=== PATIENT | female | born 1950 | race Caucasian/White ===

== ENCOUNTER 2019-11-10 07:41 | Outpatient (CLI) | payer MEDICARE, SELFPAY ==
--- NOTE | ~2019-11-10 | US_ITS ---
EXAMINATION: US pelvic complete w TV DATE: 11/10/2019 08:30 INDICATION: Postmenopausal bleeding Comparison:Ultrasound dated 02/14/2011 TECHNIQUE: Multiple transabdominal and endovaginal sonographic images of the pelvis performed. FINDINGS: The uterus measures 8.9 x 4.1 x 3.4 cm. There is a uterine fibroid measuring 1.7 x 1.5 x 1. 6 cm. The endometrial complex is not well visualized for measurement. The ovaries are not visualized. There is no free fluid in the pelvis. There are no abnormal masses seen on either side. IMPRESSION: 1. Uterine fibroid measuring 1.7 cm. 2: Endometrium is not adequately visualized for measurement. Reviewed, dictated and finalized at location A.
== END 2019-11-10 07:42 | disposition home or self-care (01) ==
LOC: ANHIMG 07:48
PROVIDERS: PCP Internal Medicine; Visit Provider Nurse Practitioner
DX: N95.0 Postmenopausal bleeding (principal); D25.9 Leiomyoma of uterus, unspecified
CPT/HCPCS: 76830; 76856

== ENCOUNTER 2020-03-06 08:47 | Outpatient (CLI) | payer MEDICARE, SELFPAY ==
--- NOTE | ~2020-03-06 | DEXA_ITS ---
Bone Density Report Name: Agnieszka Rockwell Age: 69 Sex: Female Ethnicity: White Date of : 1950 Indication: postmenopausal; Referring Provider: Darshana, Kaylin Study: Bone densitometry was performed. Exam Date: March 06, 2020 Accession number: [id number] Bone Density: Region BMD T-score Z-score Classification AP Spine (L3, L4) 1.203 0.9 3.1 Normal Femoral Neck (Left) 0.812 -0.3 1.4 Normal Total Hip (Left) 1.108 1.4 2.8 Normal Total Hip Bilateral Avg 1.069 1.0 2.5 Normal Femoral Neck (Right) 0.851 0.0 1.8 Normal Total Hip (Right) 1.028 0.7 2.2 Normal World Health Organization criteria for BMD impression classify patients as: Normal (T-score at or above -1.0), Osteopenia (T-score between -1.0 and -2.5), or Osteoporosis (T-score at or below -2.5). 10-year Fracture Risk: FRAX not reported because: All T-scores for Spine Total, Hip Total, Femoral Neck at or above -1.0 Previous Exams: Region Exam Age BMD T-score BMD Change BMD Change Date g/cm2 vs Baseline vs Previous AP Spine(L3, L4) 03/06/2020 69 1.203 0.9 0.155(14.8%)# -0.013(-1.0%)# 12/25/2016 66 1.215 1.0 0.167(16.0%)# 0.036(3.1%)# 01/11/2014 63 1.179 0.7 0.131(12.5%)# 0.131(12.5%)# 10/29/2005 55 1.048 -0.5 Total Hip(Left) 03/06/2020 69 1.108 1.4 0.013(1.2%)# -0.051(-4.4%)# 12/25/2016 66 1.159 1.8 0.064(5.9%)# 0.048(4.3%)# 01/11/2014 63 1.111 1.4 0.016(1.5%)# 0.016(1.5%)# 10/29/2005 55 1.094 1.2 Total Hip(Right) 03/06/2020 69 1.028 0.7 -0.004(-0.4%)# -0.082(-7.4%)# 12/25/2016 66 1.110 1.4 0.078(7.5%)# 0.031(2.9%)# 01/11/2014 63 1.079 1.1 0.046(4.5%)# 0.046(4.5%)# 10/29/2005 55 1.032 0.7 *Denotes significance at 95% confidence level, LSC for AP Spine = 0.022 g/cm2, LSC for Total Hip = 0.027 g/cm2 Clinical Information Provided by Patient: Has used the following medications: HRT (i.e. estrogen/hormone therapy), Vitamin D Patient maximum height was 64 No regular weight bearing exercise Onset of menses at age 11 Number of children 1 Impression: The patient has normal bone mass. No significant bone loss was observed. Discussion: BONE DENSITY IS ABOVE THE MINIMUM DESIRABLE LEVEL AT ALL SKELETAL SITES TESTED. This patient?s bone mineral density is above the minimum desirable level (T-score -1.0 or better) at all sites measured. The patient should follow a healthful lifesty
--- NOTE | ~2020-03-06 | MM_ITS ---
EXAMINATION: MM screening asim BI w mitchell HISTORY: Screening mammogram TECHNIQUE: Craniocaudal and mediolateral oblique 3-D tomosynthesis images were obtained and synthetic 2-D images were generated. CAD analysis was submitted and interpreted. COMPARISON: No prior mammogram is available for comparison at this institution. BREAST PARENCHYMAL COMPOSITION: There are scattered areas of fibroglandular density. FINDINGS: Occasional benign calcifications. There is no evidence of suspicious mass, calcification, o r architectural distortion to suggest malignancy in either breast. There has been no suspicious inter lana change. IMPRESSION: 1. No mammographic evidence of malignancy. 2. Recommend routine screening mammography in one year. BI-RADS Category 2: Benign finding(s). Reviewed, dictated and finalized at location A. [facility] [employer]
== END 2020-03-06 08:48 | disposition home or self-care (01) ==
PROVIDERS: PCP Internal Medicine; Visit Provider Nurse Practitioner
DX: Z12.31 Encounter for screening mammogram for malignant neoplasm of breast (principal); Z78.0 Asymptomatic menopausal state
CPT/HCPCS: 77063; 77067; 77080

== ENCOUNTER 2020-04-13 15:15 | Outpatient (CLI) | payer MEDICARE, SELFPAY ==
--- NOTE | ~2020-04-13 | US_ITS ---
EXAMINATION: US pelvic complete w TV DATE: 04/13/2020 16:43 INDICATION: Postmenopausal bleeding. TECHNIQUE: Multiple transabdominal and transvaginal sonographic images of the pelvis were obtained. COMPARISON: Ultrasound pelvis 11/10/2019 FINDINGS: TRANSABDOMINAL ULTRASOUND: The uterus measures 5.0 x 2.9 x 2.1 cm. There is no free fluid in the pelvis. TRANSVAGINAL ULTRASOUND: The endometrial complex measures 7 mm in thickness. The ovaries are not visualized. IMPRESSION: 1. Thickened endometrial complex. The differential diagnosis includes endometrial hyperplasia, polyp, and carcinoma. Biopsy is recommended. Reviewed, dictated and finalized at location A. SPECIALIST IMPRESSION: 1. Thickened endometrial complex. The differential diagnosis includes endometri al hyperplasia, polyp, and carcinoma. Biopsy is recommended.
== END 2020-04-13 15:16 | disposition home or self-care (01) ==
PROVIDERS: PCP Internal Medicine; Visit Provider Nurse Practitioner
DX: N95.0 Postmenopausal bleeding (principal)
CPT/HCPCS: 76830; 76856

== ENCOUNTER 2021-03-14 08:00 | Outpatient (CLI) | payer MEDICARE, SELFPAY ==
--- NOTE | ~2021-03-14 | MM_ITS ---
EXAMINATION: MM screening asim BI w mitchell HISTORY: Screening mammogram TECHNIQUE: Craniocaudal and mediolateral oblique 3-D tomosynthesis images were obtained and synthetic 2-D images were generated. CAD analysis was submitted and interpreted. COMPARISON: 03/06/2020 BREAST PARENCHYMAL COMPOSITION: There are scattered areas of fibroglandular density. FINDINGS: There is no evidence of suspicious mass, calcification, or architectural distortion to sugg est malignancy in either breast. There has been no suspicious interval change. IMPRESSION: 1. No mammographic evidence of malignancy. 2. Recommend routine screening mammography in one year. BI-RADS Category 1: Negative Reviewed, dictated and finalized at location A. UTATOR TESTER
== END 2021-03-14 08:01 | disposition home or self-care (01) ==
LOC: ANHIMG 08:02
PROVIDERS: PCP Internal Medicine; Visit Provider Nurse Practitioner
DX: Z12.31 Encounter for screening mammogram for malignant neoplasm of breast (principal)
CPT/HCPCS: 77063; 77067

== ENCOUNTER → 2022-02-27 08:12 | Outpatient (CLI) | payer MEDICARE, SELFPAY ==
--- NOTE | ~2022-02-27 | US_ITS ---
EXAMINATION: US transvaginal DATE: 02/27/2022 08:37 INDICATION: Postmenopausal bleeding TECHNIQUE: Multiple endovaginal sonographic images of the pelvis were obtained. COMPARISON: 04/13/2020 FINDINGS: The uterus measures 7.2 x 3.0 x 3.1 cm. The endometrial complex measures 14 mm. The ovaries are not visualized however no adnexal abnormality is seen. There is no free fluid in the pelvis. IMPRESSION: 1. Endometrial thickening which may be due to hyperplasia, polyp, or malignancy. Endometrial sampling is recommended if not previously performed. Reviewed, dictated and finalized at location B. EMPORARY OR MODERN DANCER IMPRESSION: 1. Endometrial thickening which may be due to hyperplasia, polyp, or malignancy . Endometrial sampling is recommended if not previously performed.
== END ==
PROVIDERS: PCP Family Medicine; Visit Provider Nurse Practitioner
DX: N95.0 Postmenopausal bleeding (principal)
CPT/HCPCS: 76830

== ENCOUNTER 2022-03-25 12:50 | Outpatient (CLI) | payer MEDICARE, SELFPAY ==
[2022-03-25 13:35] LABS: Anion Gap 6 mmol/L (8-16); Blood Urea Nitrogen 17 mg/dL (7-17); Carbon Dioxide 27 mmol/L (22-30); Chloride 105 mmol/L (98-107); Estimated Glomerular Filt Rate > 60; Glucose 188 mg/dL (65-110); Potassium 4.4 mmol/L (3.4-5.0); Sodium 138 mmol/L (137-145)
== END 2022-03-25 12:51 | disposition home or self-care (01) ==
LOC: ANHSURGERY 12:54
PROVIDERS: Anesthesiology; PCP Family Medicine; Visit Provider Obstetrics & Gynecology Gynecology
DX: E11.9 Type 2 diabetes mellitus without complications (principal)
CPT/HCPCS: 36415; 80048

== ENCOUNTER 2022-04-01 00:48 | Day surgery (SDC) | payer MEDICARE, SELFPAY ==
[2022-03-18 13:17] VITALS: BMI 40.8
--- NOTE | 2022-03-18 13:25 | PC.NURSE ---
PRE-OP INSTRUCTIONS, PLEASE READ CAREFULLY Report to the Outpatient Waiting Room, entrance under the green pavilion located off [facility], at time _0815_ on date _04/01/22_. Planned Procedure Time: _1015_. Time changes happen often and if your time is changed the preop area will call you the afternoon before. - You and your visitor will be asked to self-screen and do not enter if you have any COVID symptoms. - Only one visitor is requested with a max of two and NO children visitors are allowed at this time. - The patient visitor may be requested to leave or wait in car when not with patient due to distancing restrictions. - A mask is optional within the hospital at this time. Patients may have clear liquids (water, carbonated beverages, clear teas, apple juice) until 3 hours prior to surgery (0715 AM) with a maximum of 20 ounces. - No food from midnight until time of surgery Take the following medications with a SIP of water the morning of surgery: _ATENOLOL, BIMATOPROST EYE DROPS_ DO NOT STOP ANY OF YOUR OTHER PRESCRIPTION MEDICATIONS PRIOR TO SURGERY ?EXCEPT THE FOLLOWING Medications to discontinue _XARELTO PER DR. JUSTICE'S INSTRUCTIONS_, Date to take last dose Please no make-up, nail telugu, hairspray, perfume, deodorant, or body powder the day of surgery. No jewelry (including any body piercings) or valuables the day of surgery, leave them at home. Please take a shower or bath the night before, or the morning of, surgery with an antibacterial soap. Wear comfortable, loose fitting clothing. - Jewelry must be removed prior to entering the operating room. Rings and piercings that are not removed may be cut off. - The hospital will not accept responsibility for valuables. - Please leave all valuables, including medications, at home the day of surgery. If you are going home after surgery, a licensed mobile lounge driver or operator must drive you home. - NO public transportation without another adult if you receive anesthesia. - We recommend that an adult stay with you for 24 hours following discharge. - We also recommend that you do not drive, make important decision, drink alcoholic beverages, or take any drugs that were not prescribed by your health care provider for at least 24 hours after your discharge time. Follow any additional instructions given to you from your surgeon. If you or anyone in your household have experienced Covid symptoms in the past week, please notify your surgeon or the nurse liaison at the phone number below for possible testing. Telephone instructions given to __PATIENT__and asked if any additional questions and then verbalized understanding. Patient advised to call surgeon office or pre surgery nurse liaison [phone] if any additional questions.
--- NOTE | 2022-04-01 07:37 | WPDHPUPDATE1 ---
History and Physical Update Update Date/Time: 04/01/22 07:37 History and Physical has been reviewed, including an updated exam of the patient. There are NO changes in the patient's condition. Risks, benefits, and alternatives have been discussed and questions answered. Patient agrees to proceed with procedure.
--- NOTE | 2022-04-01 07:37 | PM.HPGS ---
History of Present Illness History of Present Illness Consent: Risks, benefits, and alternatives have been discussed and questions answered. Patient agrees to proceed with procedure. Chief complaint: post menopausal bleeding Narrative: Agnieszka Rockwell is a 71 year old female with postmenopausal bleeding. Pelvic ultrasound reveals a thickened endometrium at 14mm. It was recommended to proceed with D&C hysteroscopy. Patient with similar episode in September of 2019 and endometrial biopsy was benign. She was begun on Prometrium 100mg daily at that time. Risks of infection, bleeding, perforation, and possible pathology are reviewed. Patient voices understanding and agrees to proceed. Review of Systems Review of Systems: not repeated day of surgery; patient states no changes in status [facility] Past Medical History Medical History (Updated 04/01/22 @ 08:15 by Sarah Rogers MD) Asthma Atrial fibrillation Chronic GERD GERD (gastroesophageal reflux disease) Hypertension Mixed hyperlipidemia MIRELLA (obstructive sleep apnea) Type 2 diabetes mellitus without complication, without long-term current use of insulin Surgical History Surgical History History of cholecystectomy History of D&C Family History Family History Father Family history of gallbladder disease Family history of malignant neoplasm of skin Family history of heart disease in male family member before age 55 Hypertension Sibling Family history of gallbladder disease Asthma Patient's sister is in good health Mother Family history of osteoporosis Family history of Parkinson's disease Asthma Other Alcoholism Depression Other Family history of allergic disorder Family history of cardiovascular disease Social History Social History Smoking status: Never smoker Tobacco type: cigarettes Second hand tobacco smoke exposure: No Alcohol intake: never Substance use: never Substance use type: does not use Lack of Transportation: No Lack of Food: Never True Current Housing: I Have Housing Concerned About Future Housing: No Difficulty Paying Gas/Electric Bills: No Difficulty Paying for Meds: No Currently Unemployed: No Education: High School Diploma/GED Difficulty w/ Childcare or Family Care: No Living arrangements: alone Occupation/Education: retired Spiritual care concerns: No Meds Home Medications and Allergies Home Medications Medication Instructions Recorded Confirmed Type atenolol 50 mg tablet 50 mg PO DAILY 12/18/18 03/18/22 History enalapril maleate 5 mg tablet 5 mg PO DAILY 12/18/18 03/18/22 History pravastatin 20 mg tablet 20 mg PO DAILY 12/18/18 03/18/22 History cholecalciferol (vitamin D3) 50 50 mcg PO DAILY 07/05/19 03/18/22 History mcg (2,000 unit) capsule rivaroxaban 20 mg tablet (Xarelto) 20 mg PO DAILY 07/05/19 03/18/22 History progesterone micronized 100 mg 100 mg PO QAM 01/06/20 03/18/22 History capsule bimatoprost 0.01 % eye drops 1 drp EACH EYE DAILY 01/23/21 03/18/22 History (Minh) dapagliflozin 10 mg tablet See Rx Instructions .Route 12/04/21 03/18/22 Rx (Farxiga) .COMPLEX #90 tabs famotidine 40 mg tablet See Rx Instructions .Route 12/04/21 03/18/22 Rx .COMPLEX #90 tabs sitagliptin phosphate 50 See Rx Instructions .Route 12/04/21 03/18/22 Rx mg-metformin 500 mg tablet .COMPLEX #180 tabs (Janumet) fluticasone propionate 50 See Rx Instructions .Route 12/24/21 03/18/22 Rx mcg/actuation nasal .COMPLEX #16 mL spray,suspension cetirizine 10 mg tablet 10 mg PO DAILY #90 tabs 01/09/22 03/18/22 Rx timolol maleate 0.5 % eye drops 1 drp EACH EYE HS 03/18/22 03/18/22 History Allergies Allergy/AdvReac Type Severity Reaction Status Date / Time No Known Allergies Allergy Verified
[2022-04-01 08:40] VITALS: BP 143/64; PULSE 66; RESP 18; TEMP 36.7; O2SAT 100
[2022-04-01] MEDS: LACTATED RINGERS 1,000 ML 30 ML IV CONT (08:50)
[2022-04-01 08:56] LABS: Glucose Point of Care 159 mg/dl (65-105)
[2022-04-01] MEDS: ACETAMINOPHEN 500 MG TABLET 1000 MG PO (09:16)
--- NOTE | 2022-04-01 09:27 | WPDANESEPPF ---
Anes - Initial Pre Proc Eval Procedure: Operation Date: 04/01/22 10:15 Proposed Procedures p Hysteroscopy Dilation and Curettage - Sarah Rogers MD Date/Time: 04/01/22 09:27 Surgeon: Sarah Rogers MD Pre Op Diagnosis: post menopausal bleeding Patient Data Age: 71 Gender: F Height: 1.6 m Weight: 105 kg Last Vital Signs Temp 36.7 C 04/01/22 08:40 Pulse 66 04/01/22 08:40 Resp 18 04/01/22 08:40 BP 143/64 H 04/01/22 08:40 Pulse Ox 100 04/01/22 08:40 O2 Del Method Room Air 04/01/22 08:40 Allergies Allergy/AdvReac Type Severity Reaction Status Date / Time No Known Allergies Allergy Verified 04/01/22 09:10 Home Medications Medication Instructions Recorded Confirmed Type atenolol 50 mg tablet 50 mg PO DAILY 12/18/18 04/01/22 History enalapril maleate 5 mg tablet 5 mg PO DAILY 12/18/18 04/01/22 History pravastatin 20 mg tablet 20 mg PO DAILY 12/18/18 04/01/22 History cholecalciferol (vitamin D3) 50 50 mcg PO DAILY 07/05/19 04/01/22 History mcg (2,000 unit) capsule rivaroxaban 20 mg tablet (Xarelto) 20 mg PO DAILY 07/05/19 04/01/22 History progesterone micronized 100 mg 100 mg PO QAM 01/06/20 04/01/22 History capsule bimatoprost 0.01 % eye drops 1 drp EACH EYE DAILY 01/23/21 04/01/22 History (Azaeligan) dapagliflozin 10 mg tablet See Rx Instructions .Route 12/04/21 04/01/22 Rx (Farxiga) .COMPLEX #90 tabs famotidine 40 mg tablet See Rx Instructions .Route 12/04/21 04/01/22 Rx .COMPLEX #90 tabs sitagliptin phosphate 50 See Rx Instructions .Route 12/04/21 04/01/22 Rx mg-metformin 500 mg tablet .COMPLEX #180 tabs (Janumet) fluticasone propionate 50 See Rx Instructions .Route 12/24/21 04/01/22 Rx mcg/actuation nasal .COMPLEX #16 mL spray,suspension cetirizine 10 mg tablet 10 mg PO DAILY #90 tabs 01/09/22 04/01/22 Rx timolol maleate 0.5 % eye drops 1 drp EACH EYE HS 03/18/22 04/01/22 History Laboratory Tests 04/01/22 08:53 POC Capillary Glucose 159 mg/dl H mg/dl (65-105) Patient hx anesthesia problems: none Family hx anesthesia problems: none Results Review: All pre-operative results and documents have been reviewed as part of the pre-operative evaluation. [facility] Past Medical History Medical History Asthma Atrial fibrillation Chronic GERD GERD (gastroesophageal reflux disease) Hypertension Mixed hyperlipidemia MIRELLA (obstructive sleep apnea) Type 2 diabetes mellitus without complication, without long-term current use of insulin Surgical History Surgical History History of cholecystectomy History of D&C Family History Family History Father Family history of gallbladder disease Family history of malignant neoplasm of skin Family history of heart disease in male family member before age 55 Hypertension Sibling Family history of gallbladder disease Asthma Patient's sister is in good health Mother Family history of osteoporosis Family history of Parkinson's disease Asthma Other Alcoholism Depression Other Family history of allergic disorder Family history of cardiovascular disease Social History Social History Smoking status: Never smoker Tobacco type: cigarettes Second hand tobacco smoke exposure: No Alcohol intake: never Substance use: never Substance use type: does not use Lack of Transportation: No Lack of Food: Never True Current Housing: I Have Housing Concerned About Future Housing: No Difficulty Paying Gas/Electric Bills: No Difficulty Paying for Meds: No Currently Unemployed: No Education: High School Diploma/GED Difficulty w/ Childcare or Family Care: No Living arrangements: alone Occupation/Education: retired Spiritual care concerns: No
[2022-04-01] MEDS: KETOROLAC 30 MG/ML VIAL (*BKC) 15 MG IV PUSH (10:35)
[2022-04-01] MEDS: LIDOCAINE HCL 1% PF 30 ML VIAL 10 ML INFILTRATE (10:41)
--- NOTE | 2022-04-01 10:53 | P.OP_ITS ---
Procedure Note - Detailed Date of Procedure 04/01/22 Pre-op Diagnosis post menopausal bleeding Post-op Diagnosis Same Procedure Performed D&C hysteroscopy with resection of polyps Surgeon Sarah Rogers MD Anesthesia MAC and Local Findings The uterus sounds to 7.5cm. there are 2 polyps noted. The posterior wall polyp is irregularly shaped and vascular With calcifications. The anterior wall polyp is to the left and smooth and round. Also noted is a thickened anterior wall near the cervical junction. Description of Procedure The patient is taken to operating room and placed under anesthesia in the dorsal lithotomy position. She was prepped and draped in the usual sterile fashion. [place] speculum was placed in the vagina and the cervix grasped on the anterior lip with a tenaculum. The cervix is injected in each quadrant with 1% lidocaine. The uterus is sounded to 7.5cm and the cervix serially dilated to an 8 Hegar. The diagnostic hysteroscope was placed with the above- stated findings the MyoSure device is opened and placed. Using the MyoSure device the polyps and thickened area are removed under direct visualization. The hysteroscope was then removed and the medium sharp curette used to curette the endometrium until a good uterine cry is noted in all areas. Instruments are removed. Sponge, needle, and instrument counts are correct per the OR staff. The patient is awakened from anesthesia and taken to recovery in stable condition. Estimated Blood Loss 5 Drains No Packing No Pathology Yes ( Endometrial curettings and shavings) Complications No immediate complications Condition Stable Disposition PACU
[2022-04-01 10:56] VITALS: BP 132/70; PULSE 70; RESP 16; O2SAT 95
[2022-04-01 11:03] LABS: Glucose Point of Care 137 mg/dl (65-105)
[2022-04-01 11:25] VITALS: BP 134/64; PULSE 57; O2SAT 99
[2022-04-01 11:55] VITALS: BP 127/57; PULSE 54
[2022-04-01 12:25] VITALS: BP 130/66; PULSE 60; RESP 16
== END 2022-04-01 12:38 | disposition home or self-care (01) ==
PROVIDERS: PCP Family Medicine; Visit Provider Obstetrics & Gynecology Gynecology
PROC: 0U5B8ZZ Destruction of Endometrium, Via Natural or Artificial Opening Endoscopic (ICD-10-PCS; CPT 58563; principal; 2022-04-01 10:15)
DX: N95.0 Postmenopausal bleeding (principal); N84.0 Polyp of corpus uteri; Z79.01 Long term (current) use of anticoagulants; Z79.84 Long term (current) use of oral hypoglycemic drugs; I48.91 Unspecified atrial fibrillation; J45.909 Unspecified asthma, uncomplicated; I10 Essential (primary) hypertension; E78.2 Mixed hyperlipidemia; G47.33 Obstructive sleep apnea (adult) (pediatric); E11.9 Type 2 diabetes mellitus without complications; K21.9 Gastro-esophageal reflux disease without esophagitis; E66.01 Morbid (severe) obesity due to excess calories; Z68.41 Body mass index [BMI] 40.0-44.9, adult
CPT/HCPCS: 58558; 82948; 88305; A9270; J1885; J2704; J3010; J7030; J7120

== ENCOUNTER 2022-05-10 09:22 | Outpatient (CLI) | payer MEDICARE, SELFPAY ==
--- NOTE | ~2022-05-10 | MM_ITS ---
EXAMINATION: MM screening asim BI w mitchell HISTORY: Screening TECHNIQUE: Craniocaudal and mediolateral oblique 3-D tomosynthesis images were obtained and synthetic 2-D images were generated. CAD analysis was submitted and interpreted. COMPARISON: Comparison to multiple prior studies sequentially, with oldest reviewed study dated 03/06. BREAST PARENCHYMAL COMPOSITION: There are scattered areas of fibroglandular density. FINDINGS: There is no evidence of suspicious mass, calcification, or architectural distortion to sugg est malignancy in either breast. There has been no suspicious interval change. IMPRESSION: 1. No mammographic evidence of malignancy. 2. Recommend routine screening mammography in one year. BI-RADS Category 1: Negative Reviewed, dictated and finalized at location A.
== END 2022-05-10 09:23 | disposition home or self-care (01) ==
PROVIDERS: PCP Family Medicine; Visit Provider Nurse Practitioner
DX: Z12.31 Encounter for screening mammogram for malignant neoplasm of breast (principal)
CPT/HCPCS: 77063; 77067

== ENCOUNTER 2023-05-13 01:09 | Day surgery (SDC) | payer MEDICARE, SELFPAY ==
[2023-05-06 14:59] VITALS: BMI 41.2
--- NOTE | 2023-05-06 15:27 | PC.NURSE ---
Spoke with PATIENT regarding medication XARELTO. Pt. verbalizes understanding that the last dose of XARELTO is to be taken on 05/09/2023 and the Endoscopist will instruct them when to restart after the procedure.
--- NOTE | 2023-05-09 09:07 | SUR.PREOP ---
Patient called regarding upcoming procedure. Reviewed preop instructions, appointment times, and procedure prep.
[2023-05-13 08:17] VITALS: BP 145/50; PULSE 75; RESP 18; TEMP 36.2; O2SAT 98
[2023-05-13] MEDS: LACTATED RINGERS 1,000 ML 150 ML IV CONT (08:26)
[2023-05-13 08:28] LABS: Glucose Point of Care 148 mg/dl (65-105)
--- NOTE | 2023-05-13 08:30 | WPDANESEPPF ---
Anes - Initial Pre Proc Eval Procedure: Operation Date: 05/13/23 09:30 Proposed Procedures p Colonoscopy - Fabian Rodriguez MD Date/Time: 05/13/23 08:30 Surgeon: Fabian Rodriguez MD Pre Op Diagnosis: hx of colon polyps Patient Data Age: 72 Gender: F Height: 1.63 m Weight: 107.8 kg Last Vital Signs Temp 97.2 F L 05/13/23 08:17 Pulse 75 05/13/23 08:17 Resp 18 05/13/23 08:17 BP 145/50 H 05/13/23 08:17 Pulse Ox 98 05/13/23 08:17 O2 Del Method Room Air 05/13/23 08:17 Allergies Allergy/AdvReac Type Severity Reaction Status Date / Time No Known Allergies Allergy Verified 05/13/23 08:16 Home Medications Medication Instructions Recorded Confirmed Type atenolol 50 mg tablet 50 mg PO DAILY 12/18/18 05/13/23 History enalapril maleate 5 mg tablet 5 mg PO DAILY 12/18/18 05/13/23 History pravastatin 20 mg tablet 20 mg PO DAILY 12/18/18 05/13/23 History cholecalciferol (vitamin D3) 50 50 mcg PO DAILY 07/05/19 05/13/23 History mcg (2,000 unit) capsule rivaroxaban 20 mg tablet (Xarelto) 20 mg PO DAILY 07/05/19 05/13/23 History bimatoprost 0.01 % eye drops 1 drp EACH EYE DAILY 01/23/21 05/13/23 History (Minh) dapagliflozin propanediol 10 mg See Rx Instructions .Route 12/04/21 05/13/23 Rx tablet (Farxiga) .COMPLEX #90 tabs timolol maleate 0.5 % eye drops 1 drp EACH EYE HS 03/18/22 05/13/23 History fluticasone propionate 50 See Rx Instructions .Route 12/24/22 05/13/23 Rx mcg/actuation nasal .COMPLEX #16 mL spray,suspension cetirizine 10 mg tablet 10 mg PO DAILY #90 tabs 12/27/22 05/13/23 Rx fluticasone 250 mcg-salmeterol 50 1 inh inhalation BID #60 ea 12/31/22 05/13/23 Rx mcg/dose blistr powdr for inhalation (Advair Diskus) famotidine 40 mg tablet See Rx Instructions .Route 04/08/23 05/13/23 Rx .COMPLEX #90 tabs sitagliptin phosphate 50 See Rx Instructions .Route 04/08/23 05/13/23 Rx mg-metformin 500 mg tablet .COMPLEX #180 tabs (Janumet) Laboratory Tests 05/13/23 08:22 POC Capillary Glucose 148 H mg/dl (65-105) Patient hx anesthesia problems: none Family hx anesthesia problems: none Results Review: All pre-operative results and documents have been reviewed as part of the pre-operative evaluation. [facility] Past Medical History Medical History Asthma Atrial fibrillation Chronic GERD GERD (gastroesophageal reflux disease) Hypertension Mixed hyperlipidemia MIRELLA (obstructive sleep apnea) Type 2 diabetes mellitus without complication, without long-term current use of insulin Surgical History Surgical History History of cholecystectomy History of D&C Family History Family History Father Family history of gallbladder disease Family history of malignant neoplasm of skin Family history of heart disease in male family member before age 55 Hypertension Sibling Family history of gallbladder disease Asthma Patient's sister is in good health Mother Family history of osteoporosis Family history of Parkinson's disease Asthma Other Alcoholism Depression Other Family history of allergic disorder Family history of cardiovascular disease Social History Social History Smoking status: Never smoker Second hand tobacco smoke exposure: No Alcohol intake: never Substance use: never Substance use type: does not use Lack of Transportation: No Lack of Food: Never True Current Housing: I Have Housing Concerned About Future Housing: No Difficulty Paying Gas/Electric Bills: No Difficulty Paying for Meds: No Currently Unemployed: No Education: High School Diploma/GED Difficulty w/ Childcare or Family Care: No Living arrangements: alone Occupation/Education: reti
--- NOTE | 2023-05-13 09:02 | PM.HPGS ---
History of Present Illness History of Present Illness Consent: Risks, benefits, and alternatives have been discussed and questions answered. Patient agrees to proceed with procedure. Chief complaint: hx of colon polyps Narrative: Agnieszka Rockwell is a 72 year old female with colon polyp in 2018 Review of Systems Review of Systems: All systems reviewed & are unremarkable except as noted in HPI and below PMFSH Past Medical History Medical History Asthma Atrial fibrillation Chronic GERD GERD (gastroesophageal reflux disease) Hypertension Mixed hyperlipidemia MIRELLA (obstructive sleep apnea) Type 2 diabetes mellitus without complication, without long-term current use of insulin Surgical History Surgical History History of cholecystectomy History of D&C Family History Family History Father Family history of gallbladder disease Family history of malignant neoplasm of skin Family history of heart disease in male family member before age 55 Hypertension Sibling Family history of gallbladder disease Asthma Patient's sister is in good health Mother Family history of osteoporosis Family history of Parkinson's disease Asthma Other Alcoholism Depression Other Family history of allergic disorder Family history of cardiovascular disease Social History Social History Smoking status: Never smoker Second hand tobacco smoke exposure: No Alcohol intake: never Substance use: never Substance use type: does not use Lack of Transportation: No Lack of Food: Never True Current Housing: I Have Housing Concerned About Future Housing: No Difficulty Paying Gas/Electric Bills: No Difficulty Paying for Meds: No Currently Unemployed: No Education: High School Diploma/GED Difficulty w/ Childcare or Family Care: No Living arrangements: alone Occupation/Education: retired Spiritual care concerns: No Meds Home Medications and Allergies Home Medications Medication Instructions Recorded Confirmed Type atenolol 50 mg tablet 50 mg PO DAILY 12/18/18 05/13/23 History enalapril maleate 5 mg tablet 5 mg PO DAILY 12/18/18 05/13/23 History pravastatin 20 mg tablet 20 mg PO DAILY 12/18/18 05/13/23 History cholecalciferol (vitamin D3) 50 50 mcg PO DAILY 07/05/19 05/13/23 History mcg (2,000 unit) capsule rivaroxaban 20 mg tablet (Xarelto) 20 mg PO DAILY 07/05/19 05/13/23 History bimatoprost 0.01 % eye drops 1 drp EACH EYE DAILY 01/23/21 05/13/23 History (Minh) dapagliflozin propanediol 10 mg See Rx Instructions .Route 12/04/21 05/13/23 Rx tablet (Farxiga) .COMPLEX #90 tabs timolol maleate 0.5 % eye drops 1 drp EACH EYE HS 03/18/22 05/13/23 History fluticasone propionate 50 See Rx Instructions .Route 12/24/22 05/13/23 Rx mcg/actuation nasal .COMPLEX #16 mL spray,suspension cetirizine 10 mg tablet 10 mg PO DAILY #90 tabs 12/27/22 05/13/23 Rx fluticasone 250 mcg-salmeterol 50 1 inh inhalation BID #60 ea 12/31/22 05/13/23 Rx mcg/dose blistr powdr for inhalation (Advair Diskus) famotidine 40 mg tablet See Rx Instructions .Route 04/08/23 05/13/23 Rx .COMPLEX #90 tabs sitagliptin phosphate 50 See Rx Instructions .Route 04/08/23 05/13/23 Rx mg-metformin 500 mg tablet .COMPLEX #180 tabs (Janumet) Allergies Allergy/AdvReac Type Severity Reaction Status Date / Time No Known Allergies Allergy Verified 05/13/23 08:16 Vital Signs Vital Signs - 24 hr 05/13/23 08:17 Temperature 97.2 F L Pulse Rate 75 Respiratory Rate 18 Blood Pressure 145/50 H Pulse Oximetry 98 Oxygen Delivery Room Air Exam Const: General: comfortable and no acute distress HENMT: Face/Nose/Sinus: Normal nares present Eyes: General: appearance normal, b
[2023-05-13 09:21] VITALS: BP 118/67; PULSE 66; RESP 16; O2SAT 96
[2023-05-13 09:31] VITALS: BP 108/66; PULSE 61; RESP 17; O2SAT 100
[2023-05-13 09:41] VITALS: BP 125/80; PULSE 65; RESP 15; O2SAT 100
== END 2023-05-13 09:55 | disposition home or self-care (01) ==
PROVIDERS: PCP Family Medicine; Visit Provider Internal Medicine Gastroenterology
PROC: 0DJD8ZZ Inspection of Lower Intestinal Tract, Via Natural or Artificial Opening Endoscopic (ICD-10-PCS; CPT 45378; principal; 2023-05-13 09:30)
DX: Z12.11 Encounter for screening for malignant neoplasm of colon (principal); K63.5 Polyp of colon; K64.8 Other hemorrhoids; K51.40 Inflammatory polyps of colon without complications; I10 Essential (primary) hypertension; E78.2 Mixed hyperlipidemia; E11.9 Type 2 diabetes mellitus without complications; G47.33 Obstructive sleep apnea (adult) (pediatric); J45.909 Unspecified asthma, uncomplicated; K21.00 Gastro-esophageal reflux disease with esophagitis, without bleeding; I48.91 Unspecified atrial fibrillation; E66.01 Morbid (severe) obesity due to excess calories; Z68.41 Body mass index [BMI] 40.0-44.9, adult; Z79.01 Long term (current) use of anticoagulants; Z79.84 Long term (current) use of oral hypoglycemic drugs; Z90.49 Acquired absence of other specified parts of digestive tract; Z86.79 Personal history of other diseases of the circulatory system; Z84.0 Family history of diseases of the skin and subcutaneous tissue; Z82.49 Family history of ischemic heart disease and other diseases of the circulatory system
CPT/HCPCS: 45385; 82948; 88305; J2704; J7120

== ENCOUNTER 2023-05-15 08:49 | Outpatient (CLI) | payer MEDICARE, SELFPAY ==
--- NOTE | ~2023-05-15 | MM_ITS ---
EXAMINATION: MM screening asim BI w [facility] HISTORY: Screening mammogram TECHNIQUE: Craniocaudal and mediolateral oblique 3-D tomosynthesis images were obtained and synthetic 2-D images were generated. CAD analysis was submitted and interpreted. COMPARISON: 05/06/2022, 03/14/2021 bilateral screening mammogram examination BREAST PARENCHYMAL COMPOSITION: There are scattered areas of fibroglandular density. FINDINGS: There is no evidence of suspicious mass, calcification, or architectural distortion to sugg est malignancy in either breast. There has been no suspicious interval change. IMPRESSION: 1. No mammographic evidence of malignancy. 2. Recommend routine screening mammography in one year. BI-RADS Category 1: Negative Reviewed, dictated and finalized at location A.
== END 2023-05-15 08:50 | disposition home or self-care (01) ==
PROVIDERS: PCP Family Medicine; Visit Provider Nurse Practitioner
DX: Z12.31 Encounter for screening mammogram for malignant neoplasm of breast (principal)
CPT/HCPCS: 77063; 77067

== ENCOUNTER 2023-06-10 08:49 | Outpatient (CLI) | payer MEDICARE, SELFPAY ==
--- NOTE | ~2023-06-10 | DEXA_ITS ---
Bone Density Report Name: GRACIE VALDEZ Age: 72 Sex: Female Ethnicity: White Date of : 1950 Indication: postmenopausal; screening for osteoporosis; height loss; Referring Provider: JENNA, OLY Study: Bone densitometry was performed. Exam Date: June 10, 2023 Accession number: [id number] Bone Density: Region BMD T-score Z-score Classification AP Spine(L1-L4) 1.163 1.1 3.3 Normal Femoral Neck (Left) 0.762 -0.8 1.2 Normal Total Hip (Left) 1.006 0.5 2.2 Normal Femoral Neck (Right) 0.745 -0.9 1.0 Normal Total Hip (Right) 0.943 0.0 1.7 Normal Total Hip Mean 0.975 0.3 2.0 Normal World Health Organization criteria for BMD impression classify patients as: Normal (T-score at or above -1.0), Osteopenia (T-score between -1.0 and -2.5), or Osteoporosis (T-score at or below -2.5). 10-year Fracture Risk: FRAX not reported because: All T-scores for Spine Total, Hip Total, Femoral Neck at or above -1.0 Clinical Information Provided by Patient: Patient maximum height was 64.5 Menopause Age: 58 Drinks caffeinated beverages Onset of menses at age 11 Number of children 1 Impression: The patient has normal bone mass. Discussion: BONE DENSITY IS ABOVE THE MINIMUM DESIRABLE LEVEL AT ALL SKELETAL SITES TESTED. This patient?s bone mineral density is above the minimum desirable level (T-score -1.0 or better) at all sites measured. The patient should follow a healthful lifestyle (good nutrition with adequate calcium and vitamin D, and appropriate weight-bearing exercise). Follow-Up: Consider repeating this study in 5 years or sooner if there is some new clinical indication. Reported by: CONRAD on 06/10/2023 9:35:00 AM. Reviewed, dictated and finalized at location A. [facility]
== END 2023-06-10 08:50 | disposition home or self-care (01) ==
LOC: ANHIMG 08:52
PROVIDERS: PCP Family Medicine; Visit Provider Nurse Practitioner
DX: Z78.0 Asymptomatic menopausal state (principal)
CPT/HCPCS: 77080

== ENCOUNTER 2023-06-20 12:38 | Outpatient (CLI) | payer MEDICARE, SELFPAY ==
--- NOTE | ~2023-06-20 | XR_ITS ---
XR knee LT 3V 06/20/2023 13:08 Indication: Left knee pain Procedure: 3 views left knee Comparison: 01/29/2022 Findings: Severe tricompartment osteoarthritis of the left knee. No fracture or traumatic malalignmen t. No significant joint effusion. There is a small osteochondroma originating from the distal femoral metaphysis anteriorly. Impression: 1: Severe tricompartment osteoarthritis of the left knee. Reviewed, dictated and finalized at location B. Impression: 1: Severe tricompartment osteoarthritis of the left knee.
== END 2023-06-20 12:39 ==
PROVIDERS: PCP Family Medicine; Visit Provider Nurse Practitioner
DX: M17.12 Unilateral primary osteoarthritis, left knee (principal)
CPT/HCPCS: 73562

== ENCOUNTER 2023-12-26 11:01 | Outpatient (CLI) | payer MEDICARE, SELFPAY ==
[2023-12-26 13:10] LABS: Anion Gap 6 mmol/L (4-12); Blood Urea Nitrogen 17 mg/dL (7-17); Calcium 10.1 mg/dL (8.4-10.2); Carbon Dioxide 28 mmol/L (22-30); Chloride 104 mmol/L (98-107); Estimated Glomerular Filt Rate > 60; Glucose 149 mg/dL (65-110); Potassium 4.8 mmol/L (3.4-5.0); Sodium 138 mmol/L (137-145)
== END 2023-12-26 11:02 | disposition home or self-care (01) ==
PROVIDERS: Anesthesiology; PCP Family Medicine; Visit Provider Obstetrics & Gynecology Gynecology
DX: E11.9 Type 2 diabetes mellitus without complications (principal); Z01.818 Encounter for other preprocedural examination
CPT/HCPCS: 36415; 80048

== ENCOUNTER 2023-12-29 01:05 | Day surgery (SDC) | payer MEDICARE, SELFPAY ==
--- NOTE | 2023-12-25 15:09 | PC.NURSE ---
Report to the Outpatient Waiting Room, entrance under the green pavilion located off [facility], at time __7:45 AM on date _12/29/23 . Planned Procedure Time: __9:45 AM .? Time changes happen often and if your time is changed the preop area will call you the afternoon before. - You and your visitor will be asked to self-screen and do not enter if you have any COVID symptoms. Please call surgeon if you need to reschedule. - A mask is optional within the hospital at this time. Patients may have clear liquids (water, carbonated beverages, clear teas, apple juice) until 3 hours prior to surgery( 6:45 AM) with a maximum of 20 ounces. - No food from midnight until time of surgery and no smoking - Infants may have breast milk until 4 hours before surgery, formula 6 hours prior to surgery. - Children will be allowed to drink immediately following surgery.? If applicable, please bring a bottle or sippy cup to assist with drinking. Juice, water, soda, and popsicles are readily available.? For infants on formula, please bring formula the day of surgery.? Pacifiers are allowed. Take only the following medications with a SIP of water on the morning of surgery: __ATENOLOL,EYE DROPS DO NOT STOP ANY OF YOUR OTHER PRESCRIPTION MEDICATIONS PRIOR TO SURGERY EXCEPT THE FOLLOWING Medications to discontinue per physician _HOLD ALL VITAMINS 3 DAYS PRE OP.12/25/[address] JUSTICE Please no make-up, nail romansh, hairspray, perfume, deodorant, or body powder the day of surgery.? No jewelry (including any body piercings) or valuables the day of surgery, leave them at home.? Please take a shower or bath the night before, or the morning of, surgery with an antibacterial soap.? Wear comfortable, loose fitting clothing.? Children are encouraged to wear pajamas. - Jewelry must be removed prior to entering the operating room.? Rings and piercings that are not removed may be cut off. - The hospital will not accept responsibility for valuables.? - Please leave all valuables, including medications, at home the day of surgery. If you are going home after surgery, a licensed cdl flatbed truck driver must drive you home.? - NO public transportation without another adult if you receive anesthesia. - We recommend that an adult stay with you for 24 hours following discharge. - We also recommend that you do not drive, make important decision, drink alcoholic beverages, or take any drugs that were not prescribed by your health care provider for at least 24 hours after your discharge time. For Pediatric surgeries, we recommend two adults accompany the child home. Follow any additional instructions given to you from your surgeon. Telephone instructions given to __PATIENT and asked if any additional questions and then verbalized understanding. Patient advised to call surgeon office or pre surgery nurse liaison [phone] if any additional questions.
[2023-12-25 15:19] VITALS: BMI 40.8
--- NOTE | 2023-12-28 09:26 | WPDANESEPPF ---
Anes - Initial Pre Proc Eval Procedure: Operation Date: 12/29/23 09:45 Proposed Procedures p Hysteroscopy Dilation and Curettage - Sarah Rogers MD Date/Time: 12/28/23 09:26 Surgeon: Sarah Rogers MD Pre Op Diagnosis: post menopausal bleeding Patient Data Age: 73 Gender: F Height: 1.63 m Weight: 107.99 kg Allergies Allergy/AdvReac Type Severity Reaction Status Date / Time No Known Allergies Allergy Verified 12/29/23 08:06 Home Medications Medication Instructions Recorded Confirmed Type atenolol 50 mg tablet 50 mg PO DAILY 12/18/18 12/29/23 History enalapril maleate 5 mg tablet 5 mg PO DAILY 12/18/18 12/25/23 History pravastatin 20 mg tablet 20 mg PO DAILY 12/18/18 12/25/23 History cholecalciferol (vitamin D3) 50 50 mcg PO DAILY 07/05/19 12/25/23 History mcg (2,000 unit) capsule rivaroxaban 20 mg tablet (Xarelto) 20 mg PO DAILY 07/05/19 12/29/23 History bimatoprost 0.01 % eye drops 1 drp EACH EYE DAILY 01/23/21 12/29/23 History (Minh) dapagliflozin propanediol 10 mg See Rx Instructions .Route 12/04/21 12/25/23 Rx tablet (Farxiga) .COMPLEX #90 tabs timolol maleate 0.5 % eye drops 1 drp EACH EYE HS 03/18/22 12/25/23 History cetirizine 10 mg tablet 10 mg PO DAILY #90 tabs 12/27/22 12/25/23 Rx fluticasone 250 mcg-salmeterol 50 1 inh inhalation BID PRN SOB 07/16/23 12/25/23 History mcg/dose blistr powdr for inhalation (Advair Diskus) famotidine 40 mg tablet See Rx Instructions .Route 08/01/23 12/25/23 Rx .COMPLEX #90 tabs sitagliptin phosphate 50 See Rx Instructions .Route 09/01/23 12/25/23 Rx mg-metformin 500 mg tablet .COMPLEX #180 tabs (Janumet) fluticasone propionate 50 See Rx Instructions .Route 12/12/23 12/25/23 Rx mcg/actuation nasal .COMPLEX #48 mL spray,suspension Patient hx anesthesia problems: none Family hx anesthesia problems: none Results Review: All pre-operative results and documents have been reviewed as part of the pre-operative evaluation. COUNT INCLUDES THE [facility] Past Medical History Medical History Asthma Atrial fibrillation Chronic GERD Hypertension Mixed hyperlipidemia (normal spontaneous vaginal delivery) MIRELLA (obstructive sleep apnea) Type 2 diabetes mellitus without complication, without long-term current use of insulin Surgical History Surgical History History of cholecystectomy History of D&C with hysteroscopy in 2006 and 2022 history of polyps Family History Family History Father Family history of gallbladder disease Family history of malignant neoplasm of skin Family history of heart disease in male family member before age 55 Hypertension Sibling Family history of gallbladder disease Asthma Patient's sister is in good health Mother Family history of osteoporosis Family history of Parkinson's disease Asthma Other Alcoholism Depression Other Family history of allergic disorder Family history of cardiovascular disease Social History Social History Smoking status: Never smoker Second hand tobacco smoke exposure: No Alcohol intake: never Substance use: never Substance use type: does not use Lack of Transportation: No Lack of Food: Never True Current Housing: I Have Housing Concerned About Future Housing: No Difficulty Paying Gas/Electric Bills: No Difficulty Paying for Meds: No Currently Unemployed: No Education: High School Diploma/GED Difficulty w/ Childcare or Family Care: No Living arrangements: alone Occupation/Education: retired Spiritual care concerns: No Anes - Eval Final PreProcedure Day of Procedure 12/28/23 09:26 Patient weight: obese Heart: regular rate and rhythm Lungs: clear to auscultation and normal air movement Airway: Mallampati scale class II Neurological: alert and oriented Last oral intake: >/= 8 hours ASA classification: III Emergent: no Anesthetic plan: proceed Anesthesia type and monitoring: general GIVS and standard monitoring Results Review: All pre-operative results and documents have been reviewed as part of the pre-operative evaluation. Informed Consent: The patient's anesthetic plan and its attendant risks and benefits were discussed with the patient/family/POA. Questions were solicited and answers provided to the satisfaction of the patient/family/POA.
[2023-12-29 07:45] VITALS: BP 123/49; PULSE 62; RESP 18; TEMP 36.7; O2SAT 99; BMI 40.5
--- NOTE | 2023-12-29 07:46 | WPDHPUPDATE1 ---
History and Physical Update Update Date/Time: 12/29/23 07:46 History and Physical has been reviewed, including an updated exam of the patient. There are NO changes in the patient's condition. Risks, benefits, and alternatives have been discussed and questions answered. Patient agrees to proceed with procedure.
--- NOTE | 2023-12-29 07:46 | PM.HPGS ---
History of Present Illness History of Present Illness Consent: Risks, benefits, and alternatives have been discussed and questions answered. Patient agrees to proceed with procedure. Chief complaint: post menopausal bleeding Narrative: Agnieszka Rockwell is a 73 year old female with 3 days of vaginal bleeding. Patient with a history of endometrial polyps. It was recommended to undergo D&C hysteroscopy to further evaluate. Risks of infection, bleeding, perforation, and possible pathology are reviewed. Patient voices understanding and agrees to proceed. Review of Systems Review of Systems: not repeated day of surgery; patient states no changes in status [facility] Past Medical History Medical History (Updated 12/29/23 @ 07:48 by Sarah Rogers MD) Asthma Atrial fibrillation Chronic GERD Hypertension Mixed hyperlipidemia (normal spontaneous vaginal delivery) MIRELLA (obstructive sleep apnea) Type 2 diabetes mellitus without complication, without long-term current use of insulin Surgical History Surgical History (Updated 12/29/23 @ 07:48 by Sarah Rogers MD) History of cholecystectomy History of D&C with hysteroscopy in 2006 and 2022 history of polyps Family History Family History Father Family history of gallbladder disease Family history of malignant neoplasm of skin Family history of heart disease in male family member before age 55 Hypertension Sibling Family history of gallbladder disease Asthma Patient's sister is in good health Mother Family history of osteoporosis Family history of Parkinson's disease Asthma Other Alcoholism Depression Other Family history of allergic disorder Family history of cardiovascular disease Social History Social History Smoking status: Never smoker Second hand tobacco smoke exposure: No Alcohol intake: never Substance use: never Substance use type: does not use Lack of Transportation: No Lack of Food: Never True Current Housing: I Have Housing Concerned About Future Housing: No Difficulty Paying Gas/Electric Bills: No Difficulty Paying for Meds: No Currently Unemployed: No Education: High School Diploma/GED Difficulty w/ Childcare or Family Care: No Living arrangements: alone Occupation/Education: retired Spiritual care concerns: No Meds Home Medications and Allergies Home Medications Medication Instructions Recorded Confirmed Type atenolol 50 mg tablet 50 mg PO DAILY 12/18/18 12/25/23 History enalapril maleate 5 mg tablet 5 mg PO DAILY 12/18/18 12/25/23 History pravastatin 20 mg tablet 20 mg PO DAILY 12/18/18 12/25/23 History cholecalciferol (vitamin D3) 50 50 mcg PO DAILY 07/05/19 12/25/23 History mcg (2,000 unit) capsule rivaroxaban 20 mg tablet (Xarelto) 20 mg PO DAILY 07/05/19 12/25/23 History bimatoprost 0.01 % eye drops 1 drp EACH EYE DAILY 01/23/21 12/25/23 History (Minh) dapagliflozin propanediol 10 mg See Rx Instructions .Route 12/04/21 12/25/23 Rx tablet (Farxiga) .COMPLEX #90 tabs timolol maleate 0.5 % eye drops 1 drp EACH EYE HS 03/18/22 12/25/23 History cetirizine 10 mg tablet 10 mg PO DAILY #90 tabs 12/27/22 12/25/23 Rx fluticasone 250 mcg-salmeterol 50 1 inh inhalation BID PRN SOB 07/16/23 12/25/23 History mcg/dose blistr powdr for inhalation (Advair Diskus) famotidine 40 mg tablet See Rx Instructions .Route 08/01/23 12/25/23 Rx .COMPLEX #90 tabs sitagliptin phosphate 50 See Rx Instructions .Route 09/01/23 12/25/23 Rx mg-metformin 500 mg tablet .COMPLEX #180 tabs (Janumet) fluticasone propionate 50 See Rx Instructions .Route 12/12/23 12/25/23 Rx mcg/actuation nasal .COMPLEX #48 mL spray,suspension Allergies Allergy/AdvReac Type Severity Reaction Status Date / Time No Known Allergies Allergy Verified 12/25/23 15:00 Exam Const: General: healthy appearing and alert Orientation/consciousness: patient oriented x3 Resp: Effort & Inspection: normal respiratory effort : External Female Exam: normal external appearance Speculum Exam - Vagina: normal appearance of the vagina and normal vaginal discharge Speculum Exam - Cervix: normal appearance of the cervix Bimanual exam- vagina & uterus: uterine size normal and consistency normal Bimanual Exam- Adnexa, other: normal adnexae and No adnexal tenderness Neuro: General: patient oriented x3 Assessment and Plan Assessment and plan (1) Post-menopausal bleeding: Code(s): N95.0 - Postmenopausal bleeding Status: Acute Assessment and Plan: plan to proceed with D&C hysteroscopy
[2023-12-29] MEDS: LACTATED RINGERS 1,000 ML 30 ML IV CONT (08:15)
[2023-12-29] MEDS: ACETAMINOPHEN 500 MG TABLET 1000 MG PO (08:19)
[2023-12-29 08:23] LABS: Glucose Point of Care 166 mg/dl (65-105)
--- NOTE | 2023-12-29 10:01 | P.OP_ITS ---
Procedure Note - Detailed Date of Procedure 12/29/23 Pre-op Diagnosis post menopausal bleeding Post-op Diagnosis Same Procedure Performed Hysteroscopy with resection of polyps Surgeon Sarah Rogers MD Anesthesia MAC Findings uterus sounds to 9cm; small polyp noted at the right cornua and 3 larger polyp s noted in the endocervical junction; remainder of the endometrium appears grossly normal Description of Procedure The patient is taken to the operating room and placed under anesthesia in the dorsal lithotomy position. She was prepped and draped usual sterile fashion. Mobile speculum was placed in the vagina and the cervix was grasped on the an terior lip with a tenaculum. The uterus is sounded to 9cm. The diagnostic hysteroscope was placed and the above-stated findings were noted. The small Aveta resection device is placed and under direct visualization all polyps are removed. The hysteroscope was removed and the sharp OO curette used to curette till a good uterine cry was noted in all areas. All instruments are removed from the patient. The patient is awakened from anesthesia and taken to recovery in stable condition. The sponge, needle, and instrument counts are correct per the OR staff. Estimated Blood Loss 5 Drains No Packing No Pathology Yes ( Endometrial shavings and curettings) Complications No immediate complications Condition Stable Disposition PACU
[2023-12-29 10:05] VITALS: BP 112/54; PULSE 64; RESP 12; O2SAT 94
[2023-12-29 10:25] LABS: Glucose Point of Care 147 mg/dl (65-105)
[2023-12-29 10:28] VITALS: BP 117/55; PULSE 59; RESP 15; O2SAT 97
[2023-12-29 10:56] VITALS: BP 133/65; PULSE 58; RESP 16
--- NOTE | 2023-12-29 10:59 | SUR.PHASEII ---
Pt states that MD Rogers told her to resume her blood thinner tomorrow.
== END 2023-12-29 11:02 | disposition home or self-care (01) ==
PROVIDERS: PCP Family Medicine; Visit Provider Obstetrics & Gynecology Gynecology
PROC: 0U5B8ZZ Destruction of Endometrium, Via Natural or Artificial Opening Endoscopic (ICD-10-PCS; CPT 58563; principal; 2023-12-29 09:45)
DX: N95.0 Postmenopausal bleeding (principal); N84.0 Polyp of corpus uteri; E11.9 Type 2 diabetes mellitus without complications; J45.909 Unspecified asthma, uncomplicated; I48.91 Unspecified atrial fibrillation; K21.9 Gastro-esophageal reflux disease without esophagitis; I10 Essential (primary) hypertension; E78.2 Mixed hyperlipidemia; G47.33 Obstructive sleep apnea (adult) (pediatric); Z79.84 Long term (current) use of oral hypoglycemic drugs; Z79.01 Long term (current) use of anticoagulants; E66.9 Obesity, unspecified; Z68.41 Body mass index [BMI] 40.0-44.9, adult
CPT/HCPCS: 58558; 82948; 88305; A9270; J2003; J2405; J2704; J3010; J7120

== ENCOUNTER 2024-06-15 09:40 | Outpatient (CLI) | payer MEDICARE, SELFPAY ==
--- NOTE | ~2024-06-15 | MM_ITS ---
EXAMINATION: MM screening asim BI w mitchell HISTORY: Screening mammogram TECHNIQUE: Craniocaudal and mediolateral oblique 3-D tomosynthesis images were obtained and synthetic 2-D images were generated. CAD analysis was submitted and interpreted. COMPARISON: 05/15/2023, 05/10/2022, 03/14/2021 BREAST PARENCHYMAL COMPOSITION:Not Dense. The breasts are almost entirely fatty FINDINGS: No suspicious mass, calcification, or architectural distortion are identified in either dhaval ast to suggest malignancy. There has been no suspicious interval change. IMPRESSION: No mammographic evidence of malignancy. Recommend routine screening mammography in one year. BI-RADS Category 1: Negative Reviewed, dictated and finalized at location .
--- OUTSIDE RECORDS SUMMARY | 2024-06-15 10:38 | XMS_ITS | CONTINUITY OF CARE DOCUMENT ---
Author Name yasmani gruber Address Unknown Organization [facility] [address] Address [address] [place] [address] Phone [phone] Care Team Providers Care Wolf Hunter Name Role Phone Heriberto ZENDEJAS, Sonia Unavailable [phone] VERNACE DO, IRVIN Unavailable VERNACE DO, IRVIN Unavailable PROBLEMS Condition Status Date Provider Notes Hypercholesterolemia, mixed active Dottie Duran uenenfelder SHORTNESS OF BREATH- mild OS A on sleep study active Sonia Louis MD HTN- echo ef nl, 07/2021 active Jayy whittington ATRIAL FIBRILLATION PAROXYSMAL on Xarelto active Sonia Louis MD HEALTH MAINTENANCE EXAM completed - Sonia Louis MD DIABETES MELLITUS active Sonia Louis MD Obesity active Sonia Louis MD Cardiology examination active Jayy Lopez ENCOUNTERS Date Type Provider Location Encounter Diag nosis - In-person encounter Office Visit Sonia Louis MD [facility] Cardiology examination - In-person encounter Office Visit Sonia Louis MD [facility] - In-person encounter Office Visit Sonia Louis MD [facility] HTN- echo ef nl, 07/2021 - In-person encounter Office Visit Sonia Louis MD [facility] - In-person encounter Office Visit Sonia Louis MD [facility] - In-person encounter Office Visit Sonia Louis MD [facility] - In-person encounter Office Visit Sonia Louis MD [facility] - In-person encounter Office Visit Sonia Louis MD [facility] - In-person encounter Office Visit Sonia Louis MD [facility] - In-person encounter Office Visit Sonia Louis MD [facility] - In-person encounter Office Visit Sonia Louis MD [facility] SHORTNESS OF BREATH- mild MIRELLA on sleep studyHTN- echo ef nl, TRIAL FIBRILLATION PAROXYSMAL on Xarelto - In-person encounter Office Visit Sonia Louis MD [facility] ATRIAL FIBRILLATION PAROXYSMAL on Xarelto - In-person encounter Office Visit Sonia Louis MD [facility] Obesity - In-person encounter Office Visit Sonia Louis MD [facility] HEALTH MAINTENANCE EXAM - In-person encounter Office Visit Sonia Louis MD [facility] - In-person encounter Office Visit Sonia Louis MD [facility] DIABETES MELLITUS - In-person encounter Office Visit Sonia Louis MD [facility] - In-person encounter Office Visit Sonia Louis MD [facility] - In-person encounter Office Visit Sonia Louis MD [facility] - In-person encounter Office Visit Sonia Louis MD [facility] VITAL SIGNS Date Observation Value Provider Body Mass Index (Ratio) 41.71 kg/m2 Isidoro Louis MD blood pressure, diastolic 71 mm[Hg] Jil nkLogic blood pressure, systolic 126 mm[Hg] Danita kLogic pulse rate 61 /min Marcy Henry s oxygen saturation, oximetry 90 % Marcy Perdomo blood pressure, cuff size regular Br meri Perdomo blood pressure, diastolic 71 mm[Hg] Eric Perdomo blood pressure, systolic 126 mm[Hg] Donna Perdomo weight E&M 237 [lb_av] Marcy Henry s height E&M 63.2 [in_i] Marcy medina Body Mass Index (Ratio) 42.59 kg/m2 Isidoro Louis MD blood pressure, cuff size regular Mercedez shea Warner blood pressure, diastolic 66 mm[Hg] [facility] blood pressure, systolic 101 mm[Hg] Ellis [facility] oxygen saturation, oximetry 96 % [facility] respiratory rate E&M 14 /min Diane Han umm pulse rate 77 /min [facility] weight E&M 242 [lb_av] [facility] height E&M 63.2 [in_i] [facility] Body Mass Index (Ratio) 42.38 kg/m2 Isidoro Louis MD blood pressure, diastolic 71 mm[Hg] St rekha Bates blood pressure, systolic 136 mm[Hg] Eric Bates oxygen saturation, oximetry 96 % Tatiana Bates pulse rate 73 /min Tatiana Bates respiratory rate E&M 18 /min Tatiana hurley weight E&M 240.8 [lb_av] Tatiana Bates height E&M 63.2 [in_i] Tatiana Bates blood pressure, diastolic 64 mm[Hg] Tommy Lester blood pressure, systolic 115 mm[Hg] Rip bharati Lester blood pressure, cuff size large Tommy Lester oxygen saturation, oximetry 99 % Patricia Lester respiratory rate E&M 16 /min Wilfredo Lester pulse rate 68 /min Patricia escobar Body Mass Index (Ratio) 41.89 kg/m2 Riley Lester weight in kilograms E&M 107.95 kg Riley Lester weight E&M 238 [lb_av] Patricia escobar height E&M 63.2 [in_i] Patricia escobar height in centimeters E&M 160.53 cm Tommy Lester Body Mass Index (Ratio) 43.65 kg/m2 Isidoro Louis MD blood pressure, cuff size large Chris stonei Symone blood pressure, diastolic 80 mm[Hg] Ke rri Olive blood pressure, systolic 114 mm[Hg] Romain Schaefer oxygen saturation, oximetry 97 % Dottie Schaefer respiratory rate E&M 14 /min Dottie almazan pulse rate 65 /min Dottie Tinoco [facility] weight E&M 248 [lb_av] Dottie Alejandrina [facility] height E&M 63.2 [in_i] Dottie Tinoco [facility] Body Mass Index (Ratio) 43.47 kg/m2 Isidoro Louis MD blood pressure, diastolic 68 mm[Hg] Jil nkLogjenelle blood pressure, systolic 122 mm[Hg] Danita kLogic blood pressure, cuff size large Brenton Villa blood pressure, diastolic 68 mm[Hg] Tr william Villa blood pressure, systolic 122 mm[Hg] Try chiquita Villa oxygen saturation, oximetry 96 % Trychiquita Villa respiratory rate E&M 18 /min Trychiquita Villa pulse rate 74 /min Trychiquita Villa weight E&M 247 [lb_av] Trychiquita Villa height E&M 63.2 [in_i] Trychiquita Villa Body Mass Index (Ratio) 44.00 kg/m2 Isidoro Louis MD blood pressure, cuff size regular Cy ntmariia Locke blood pressure, diastolic 80 mm[Hg] Cy ntmariia Locke blood pressure, systolic 138 mm[Hg] Samra melva Locke pulse rate 85 /min Esther Campbel l oxygen saturation, oximetry 93 % Esthermelva Locke respiratory rate E&M 16 /min Esther Locke weight E&M 250 [lb_av] Esther Campbel l height E&M 63.2 [in_i] Esther Campbel l Body Mass Index (Ratio) 42.06 kg/m2 Isidoro Louis MD blood pressure, cuff size large Ke rri Gruenenfrandyer blood pressure, diastolic 70 mm[Hg] Ke rri Gruenenfelder blood pressure, systolic 140 mm[Hg] Ker ri Olive oxygen saturation, oximetry 97 % Dottie Olive respiratory rate E&M 16 /min Dottie almazan pulse rate 86 /min Dottie Alejandrina er weight E&M 239 [lb_av] Dottie Sharaneluda lder height E&M 63.2 [in_i] Dottie Sharaneluda er Body Mass Index (Ratio) 43.47 kg/m2 Isidoro Louis MD blood pressure, diastolic 70 mm[Hg] Emir Ludwig blood pressure, systolic 110 mm[Hg] Patrica Ludwig oxygen saturation, oximetry 96 % Daphney Ludwig pulse rate 78 /min Daphney Frenchby respiratory rate E&M 18 /min Daphney French blood pressure, cuff size regular Emir Ludwig weight E&M 247 [lb_av] Daphney French height E&M 63.2 [in_i] Daphney French Body Mass Index (Ratio) 40.59 kg/m2 Isidoro Louis MD blood pressure, diastolic 70 mm[Hg] Radha Dumontenson blood pressure, systolic 134 mm[Hg] Karrie Rossi oxygen saturation, oximetry 98 % Blank Rossi respiratory rate E&M 18 /min Jeanmarie Rossi pulse rate 65 /min Blank mendieta weight E&M 230.6 [lb_av] Blank patel height E&M 63.2 [in_i] Blank mendieta Body Mass Index (Ratio) 43.65 kg/m2 Isidoro Louis MD blood pressure, diastolic 76 mm[Hg] Marco Antonio kenn Yeh blood pressure, systolic 128 mm[Hg] Susanne nowak Yeh oxygen saturation, oximetry 97 % Underwood Yeh respiratory rate E&M 16 /min Viki Yeh pulse rate 63 /min Underwood Yeh weight E&M 248 [lb_av] Underwood Yeh height E&M 63.2 [in_i] Underwood Yeh Body Mass Index (Ratio) 45.41 kg/m2 Isidoro Louis MD blood pressure, resting Yes Nat Rossi blood pressure, diastolic 81 mm[Hg] Radha Rossi blood pressure, systolic 167 mm[Hg] Karrie Rossi oxygen saturation, oximetry 96 % Blank Rossi respiratory rate E&M 18 /min Jeanmarie Rossi pulse rate 66 /min Blank mnedieta weight E&M 258 [lb_av] Blank mendieta height E&M 63.2 [in_i] Blank mendieta blood pressure, diastolic 66 mm[Hg] Radha Rossi blood pressure, systolic 122 mm[Hg] Karrie Rossi pulse rate 68 /min Blank mendieta oxygen saturation, oximetry 98 % Blank Rossi respiratory rate E&M 18 /min Jeanmarie Rossi Body Mass Index (Ratio) 46.78 kg/m2 Nat Rossi weight E&M 265.8 [lb_av] Blank patel Body Mass Index (Ratio) 48.22 kg/m2 Jainne Perez blood pressure, diastolic 74 mm[Hg] To ivonne Louis MD blood pressure, systolic 144 mm[Hg] Ton kathy Louis MD pulse rate 73 /min Gal Perez oxygen saturation, oximetry 97 % Gal Perez respiratory rate E&M 17 /min Aneatri s Chris weight E&M 274 [lb_av] Gal Perez blood pressure, diastolic 79 mm[Hg] Martin Harris RN blood pressure, systolic 132 mm[Hg] Derick Harris RN pulse rate 79 /min Derick Harris RN oxygen saturation, oximetry 95 % Derick Harris RN respiratory rate E&M 15 /min Derick musa RN Body Mass Index (Ratio) 48.58 kg/m2 Derick Harris RN weight E&M 275 [lb_av] Derick Harris RN Body Mass Index (Ratio) 48.12 kg/m2 Cal álvarez Manacop blood pressure, diastolic 86 mm[Hg] Ana seph Man[place]op blood pressure, systolic 142 mm[Hg] Rivas eph Man[place]op pulse rate 77 /min Allan Manacop oxygen saturation, oximetry 97 % Allan Manacop respiratory rate E&M 16 /min Allan Manacop weight E&M 272.4 [lb_av] Allan Manacop height E&M 63.2 [in_i] Allan Manacop blood pressure, diastolic 83 mm[Hg] Resendiz blood pressure, systolic 147 mm[Hg] Brenton Felipe pulse rate 82 /min Toby Felipe oxygen saturation, oximetry 98 % Toby Felipe respiratory rate E&M 14 /min Toby Felipe weight E&M 273 [lb_av] Toby Felipe blood pressure, diastolic 86 mm[Hg] Radha reyna O'Jeb blood pressure, systolic 159 mm[Hg] Karrie lopez O'Jeb pulse rate 99 /min Myranda O'Jeb oxygen saturation, oximetry 98 % Myranda O'Jeb respiratory rate E&M 16 /min Myranda O'Jeb weight E&M 288 [lb_av] Myranda O'Jeb blood pressure, diastolic, right arm 73 m m[Hg] Allan Manacop blood pressure, systolic, right arm 142 m m[Hg] Allan Manacop blood pressure, diastolic 73 mm[Hg] Ana seph Manacop blood pressure, systolic 142 mm[Hg] Rivas eph Manacop pulse rate 77 /min Allan Manacop oxygen saturation, oximetry 96 % [facility] E&M 16 /min [facility] weight E&M 278.5 [lb_av] [facility], diastolic 70 mm[Hg] Ana seph Manacop blood pressure, systolic 136 mm[Hg] Rivas eph Manaco pulse rate 74 /min [facility] saturation, oximetry 98 % [facility] respiratory rate E&M 16 /min Strawberry Manaco weight E&M 284 [lb_av] [facility] ALLERGIES No Known Drug Allergies RESULTS Date Observation Value Provider Reference Range Interpretation Location basophils as percent of blood leukocytes 0.5 % [facility] Normal eosinophils as percent of blood leukocytes 3.4 % [facility] Normal monocyte count, blood 5.0 % [facility] Normal lymphocyte count, blood 13.0 % [facility] Normal neutrophils as percent of blood leukocytes 78.1 % [facility] Normal basophils, absolute, manual 51 cells/mcL [facility] 0-200 Normal eosinophils, absolute, manual 343 cells/mcL [facility] 15-500 Normal monocytes, absolute, manual 505 cells/mcL [facility] 200-950 Normal lymphocytes, absolute 1313 CELLS/UL [facility] 850-3900 Normal Absolute Neutrophil count 7888 cells/mcL [facility] 1468-6438 High platelet count 249 THOUSAND/UL [facility] 140-400 Normal red blood cell distribution width 14.3 % [facility] 11.0-15.0 Normal mean corpuscular hemoglobin concentration, RBC 33.3 G/DL [facility] 32.0-36.0 Normal mean corpuscular hemoglobin, RBC 29.5 pg [facility] 27.0-33.0 Normal mean corpuscular volume, RBC 88.6 fL LinkLog 80.0-100.0 Normal hematocrit, blood 37.6 % [facility] 35.0-45.0 Normal hemoglobin electrophoresis, blood 12.5 [facility] 11.7-15.5 Normal erythrocyte (RBC) count 4.25 MILLION/UL [facility] 3.80-5.10 Normal leukocyte (white blood cells) count, blood 10.1 THOUSAND/UL [facility] 3.8-10.8 Normal alanine aminotransferase (SGPT), serum 14 1/L [facility] 6-40 Normal aspartate aminotransferase (SGOT), serum 15 1/L [facility] 10-35 Normal alkaline phosphatase, serum 99 1/L [facility] 33-130 Normal bilirubin, serum, total 0.7 mg/dL [facility] 0.2-1.2 Normal albumin/globulin ratio, serum 1.3 (calc) [facility] 1.0-2.1 Normal globulins, serum, total 3.1 G/DL (CALC) [facility] 2.2-3.9 Normal albumin, serum 3.9 g/dL [facility] 3.6-5.1 Normal protein, total, serum 7.0 g/dL [facility] 6.2-8.3 Normal calcium, serum 8.9 mg/dL [facility] 8.6-10.2 Normal carbon dioxide, venous blood 22 mmol/L [facility] 21-33 Normal chloride, serum 101 mmol/L [facility] 98-110 Normal potassium, serum 4.6 mmol/L [facility] 3.5-5.3 Normal sodium, serum 138 mmol/L [facility] 135-146 Normal urea nitrogen/creatinine ratio, serum NOT APPLICABLE (calc) [facility] 6-22 Estimated Glomerular Filtration Rate (calc) >60 mL/min/1.73m2 [facility] > OR = 60 Normal creatinine, serum 0.90 mg/dL [facility] 0.60-1.10 Normal urea nitrogen, blood 14 mg/dL [facility] 7-25 Normal blood glucose, random 122 mg/dL [facility] 65-99 High HISTORY OF MEDICATION USE Medication Status Instructions Dates Provider Indications Com ments Xarelto 20 mg tablet active TAKE 1 TABLET ONCE DAILY Jayy Lopez Farxiga 10 mg tablet active Take 1 tablet by mouth once a day Dottie Schaefer atenolol 50 mg tablet active TAKE 1 TABLET DAILY Dottie Schaefer Xarelto 20 mg tablet completed Take 1 tablet by mouth once a day - Jayy Lopez atenolol 50 mg tablet completed Take 1 tablet by mouth once a day - Dottie Schaefer Farxiga 10 mg tablet completed TAKE 1 TABLET ONCE DAILY - Dottie Schaefer enalapril maleate 5 mg tablet active TAKE 1 TABLET ONCE DAILY [facility] pravastatin 20 mg tablet active TAKE 1 TABLET ONCE DAILY [facility] Xarelto 20 mg tablet completed TAKE 1 TABLET EVERY NIGHT - Dottie Schaefer atenolol 50 mg tablet completed TAKE 1 TABLET DAILY - Dottie Schaefer enalapril maleate 5 mg tablet completed Take 1 tablet by mouth once a day - Azalia Sullivan pravastatin 20 mg tablet completed Take 1 tablet by mouth once a day - Azalia Sullivan Xarelto 20 mg tablet completed Take 1 tablet by mouth every night - Azalia Sullivan atenolol 50 mg tablet completed TAKE 1 TABLET DAILY. - Dottie Schaefer Prometrium 100 mg capsule completed once a day - Jayy Vargasmedstephanie enalapril maleate 5 mg tablet completed Take 1 tablet once a day - Анна Sorto Janumet XR 50-500 mg tablet, ER multiphase 24 hr active Take 1 tablet by mouth twice a day Daphney Ludwig Vitamin D3 25 mcg (1,000 unit) tablet active 1 tablet by mouth once a day Blank Rossi ENALAPRIL MALEATE TABLET completed as directed - Daphney Ludwig pravastatin 20 mg tablet completed Take 1 tablet once a day - Анна Sorto Farxiga 10 mg tablet completed 1 tablet once a day - Dottie Schaefer Xarelto 20 mg tablet completed Take 1 tablet every night - Анна Sorto METFORMIN HCL 500 MG ORAL TABLET completed 1 tablet by mouth twice daily - Daphney Ludwig ASPIRIN 325 MG ORAL TABLET completed one tab daily - Sonia Louis MD MULTIVITAMINS ORAL CAPSULE completed ONE TAB. DAILY - Allan Kingsley Pepcid 40 mg tablet active 1 tablet once a day Blank Rossi FLONASE SUSPENSION active Maria R Stahlschmidt PREMPRO 0.3-1.5 MG ORAL TABLET completed - Viki Yeh ZYRTEC 10 MG TABS active 1 tablet once a day Sadia Villa atenolol 50 mg tablet completed TAKE 1 TABLET DAILY - Brandon Sepulveda VASOTEC 5 MG ORAL TABLET completed ONE TAB. DAILY - Solis Sharpe SOCIAL HISTORY Date Observation Value Provider drug use none [facility] alcohol use, average drinks per day none [facility] alcohol use, type Wine - very seldom [facility] alcohol use yes [facility] passive cigarette sm reyna exposure no [facility] smoking status Never smoker Jayy Lopez drug use none Jayyellis Farias alcohol use, average drinks per day none Jayyellis Farias alcohol use, type Wine - very seldom Jayy Farias alcohol use yes Jayy Lopez passive cigarette sm reyna exposure no Jayy Lopez smoking status Never smoker Jayy Farias social history E&M Marital Statu s: L liliana with family/friends E thnicity: Smoking History: P madeline has never smoked. Jayy Fariasnguyen social history reviewed E&M revi ewed - no changes required Jayy Fariasnguyen physical exercise, f requency, days per week no Tatiana Bates caffeine use, averag e drinks per day 0 /d Tatiana Bates passive cigarette sm reyna exposure no Tatiana Paulo smoking status Never smoker Tatiana Paulo social history E&M Marital Statu s: L liliana with family/friends E thnicity: Smoking History: Elijah correa has never smoked. Casandra Alba social history reviewed E&M revi ewed - no changes required Casandra Alba physical exercise, f requency, days per week no Patricia Lester caffeine use, averag e drinks per day 0 /d Patricia Lester passive cigarette sm reyna exposure no Patricia Lester smoking status Never smoker Patricia zepeda physical exercise, f requency, days per week no Dottie Schaefer caffeine use, averag e drinks per day 0 /d Dottie Schaefer passive cigarette sm reyna exposure no Dottie Schaefer smoking status Never smoker Dottie davidson social history reviewed E&M revi ewed - no changes required Jayy Lopez smoking status Never smoker Sadia De La Paz kiesha social history reviewed E&M revi ewed - no changes required Jayy Lopez social history E&M Marital Statu s: L liliana with family/friends E thnicity: Smoking History: P madeline has never smoked. Dre Taylor social history reviewed E&M revi ewed - no changes required Dre Taylor physical exercise, f requency, days per week no Esther Locke caffeine use, averag e drinks per day 0 /d Esther Locke passive cigarette sm reyna exposure no Esther Locke smoking status Never smoker Esther rogers drug use none Solis Sharpe alcohol use, average drinks per day none Solis Sharpe alcohol use, type Wine - very seldom Solis Sharpe alcohol use yes Solis Sharpe social history E&M Marital Statu s: L liliana with family/friends E thnicity: Smoking History: P madeline has never smoked. Solis Sharpe social history reviewed E&M revi ewed - no changes required Solis Sharpe physical exercise, f requency, days per week no Dottie Schaefer caffeine use, averag e drinks per day 0 /d Dottie Schaefer passive cigarette sm reyna exposure no Dottie Schaefer smoking status Never smoker Dottie davidson social history E&M Marital Statu s: L liliana with family/friends E thnicity: Smoking History: P madeline has never smoked. Sonia Louis MD social history reviewed E&M revi ewed - no changes required Sonia Louis MD physical exercise, f requency, days per week no Daphney Ludwig caffeine use, averag e drinks per day 0 /d Daphney Ludwig passive cigarette sm reyna exposure no Daphney Ludwig smoking status Never smoker Daphney Ludwig social history reviewed E&M revi ewed - no changes required Sonia Louis MD physical exercise, f requency, days per week no Blank Rossi alcohol use, average drinks per day none Blank Rossi alcohol use, type Wine - very seldom Nat Rossi alcohol use yes Blank mendieta caffeine use, averag e drinks per day 0 /d Blank Rossi drug use none Blank mendieta passive cigarette sm reyna exposure no Blank Rossi smoking status Never smoker Blank Zavala shanice social history reviewed E&M revi ewed - no changes required Sonia Louis MD social history E&M Marital Statu s: L liliana with family/friends E thnicity: Smoking History: Elijah correa has never smoked. Sonia Louis MD number of grandchildren Sonia Louis MD K martir Yeh physical exercise, f requency, days per week no Viki Yeh alcohol use, average drinks per day none Underwood Yeh alcohol use, type Wine - very seldom Zachariah vu Yeh alcohol use yes Underwood Yeh caffeine use, averag e drinks per day 0 /d Underwood Yeh drug use [facility] cigarette sm reyna exposure no Viki Yeh smoking status Never smoker Viki Haq lashawn social history reviewed E&M revi ewed - no changes required Sonia Louis MD physical exercise, f requency, days per week no Blank Rossi alcohol use, average drinks per day none Blank Rossi alcohol use, type Wine - very seldom Nat Rossi alcohol use yes Blank mendieta caffeine use, averag e drinks per day 0 /d Blank Rossi drug use none Blank mendeita passive cigarette sm reyna exposure no Blank Rossi smoking status Never smoker Blank De La Cruz social history reviewed E&M revi ewed - no changes required Sonia Louis MD physical exercise, f requency, days per week no Blank Rossi alcohol use, average drinks per day none Blank Rossi alcohol use, type Wine - very seldom Nat Rossi alcohol use yes Blank mendieta caffeine use, averag e drinks per day 0 /d Blank Rossi drug use none Blank mendieta passive cigarette sm reyna exposure no Blank Rossi smoking status Never smoker Blank De La Cruz social history reviewed E&M revi ewed - no changes required Sonia Louis MD smoking status Never smoker Gal ross social history reviewed E&M reviewed Derick Harris RN social history reviewed E&M reviewed Sonia Louis MD alcohol use, type Wine - very seldom Cal Vincentacop caffeine use, averag e drinks per day 0 /d Allan Manacop drug use none Sonia Louis MD passive cigarette sm reyna exposure no Allan Manacop smoking status never smoker Allan Manaco p social history reviewed E&M reviewed Sonia Louis MD social history E&M Marital Statu s: L liliana with family/friends E thnicity: Sonia Louis MD social history reviewed E&M reviewed Sonia Louis MD social history reviewed E&M reviewed Sonia Louis MD social history E&M L liliana with family/friends E thnicity: Sonia Louis MD drug use none Sonia Louis MD social history reviewed E&M reviewed Sonia Louis MD physical exercise, f requency, days per week no [facility] caffeine use, averag e drinks per day no [facility] alcohol use, average drinks per day none [facility] smoking status Non-smoker [facility] MENTAL STATUS Date Observation Value Provider assessment of judgme nt and insight E&M Alert and oriented to time, place and person. Mood and affect are normal. Derick Harris RN assessment of judgme nt and insight E&M Alert and oriented to time, place and person. Mood and affect are normal. Sonia Louis MD assessment of judgme nt and insight E&M Alert and oriented to time, place and person. Mood and affect are normal. Sonia Louis MD assessment of judgme nt and insight E&M Alert and oriented to time, place and person. Mood and affect are normal. Sonia Louis MD assessment of judgme nt and insight E&M Alert and oriented to time, place and person. Mood and affect are normal. Sonia Louis MD assessment of judgme nt and insight E&M Alert and oriented to time, place and person. Mood and affect are normal. Sonia Louis MD FAMILY HISTORY Family Member Condition Mother Family History Unkno wn Father Family History of Co ronary Artery Disease: INSURANCE PROVIDERS Payer name Policy type / Coverage type [place] red democrat ID [employer] MEDICARE JALEN PPO Medicare [id number] ADVANCE DIRECTIVES Name Date DISCUSSED - NO DECISION MADE TREATMENT PLAN Date Name Performer [id number],Jayy Medina i [id number],Jayy Medina i [id number],Jayy Medina i [id number],S, Jayy Ahmedza i [id number],S, Jayy Ahmedza i [id number],S, Jayy Ahmedza i [id number],S, Casandra Alford obsmeyer [id number],S, Casandra Alford obsmeyer [id number],S, Casandra Alford obsmeyer [id number],S, Casandra Alford obsmeyer [id number],S, Casandra Alford obsmeyer [id number],S, Casandra Alford obsmeyer [id number],B, Jayy Ahmedza i [id number],S, Jayy Ahmedza i [id number],S, Jayy Ahmedza i [id number],S, Jayy Ahmedza i [id number],S, Jayy Ahmedza i [id number],S, Jayy Ahmedza i [id number],S, Jayy Ahmedza i [id number],B, Jayy Ahmedza i [id number],S, Jayy Ahmedza i [id number],B, Jayy Ahmedza i [id number],B, Jayy Ahmedza i Cardiology:This visi t has been a part of the consistent, comprehensive, and ongoing management of the chronic medical condition(s) listed above for the patient. Her updated medication list for this problem includes: Atenolol 50 Mg Tablet (Atenolol) ..... Take 1 tablet daily Sonia Louis MD Cardiology: H er updated medication list for this problem includes: Farxiga 10 Mg Tablet (Dapagliflozin propanediol) ..... Take 1 tablet by mouth once a day Enalapril Maleate 5 Mg Tablet (Enalapril maleate) ..... Take 1 tablet once daily Janumet Xr 50-500 Mg Tablet, Er Multiphase 24 Hr (Sitagliptin-metformin) ..... Take 1 tablet by mouth twice a day Sonia Louis MD Cardiology: H er updated medication list for this problem includes: Atenolol 50 Mg Tablet (Atenolol) ..... Take 1 tablet daily Enalapril Maleate 5 Mg Tablet (Enalapril maleate) ..... Take 1 tablet once daily Sonia Louis MD Cardiology: H er updated medication list for this problem includes: Atenolol 50 Mg Tablet (Atenolol) ..... Take 1 tablet daily Enalapril Maleate 5 Mg Tablet (Enalapril maleate) ..... Take 1 tablet once daily Sonia Louis MD Cardiology Sonia Louis MD Cardiology: H er updated medication list for this problem includes: Atenolol 50 Mg Tablet (Atenolol) ..... Take 1 tablet daily Enalapril Maleate 5 Mg Tablet (Enalapril maleate) ..... Take 1 tablet once daily Sonia Louis MD Cardiology: H er updated medication list for this problem includes: Farxiga 10 Mg Tablet (Dapagliflozin propanediol) ..... Take 1 tablet once daily Enalapril Maleate 5 Mg Tablet (Enalapril maleate) ..... Take 1 tablet once daily Janumet Xr 50-500 Mg Tablet, Er Multiphase 24 Hr (Sitagliptin-metformin) ..... Take 1 tablet by mouth twice a day Jayy Lopez Cardiology: H er updated medication list for this problem includes: Pravastatin 20 Mg Tablet (Pravastatin) ..... Take 1 tablet once daily Jayy Lopez Cardiology: H er updated medication list for this problem includes: Atenolol 50 Mg Tablet (Atenolol) ..... Take 1 tablet daily Jayy Ahmedzai Cardiology Jayy Ahmedzai Cardiology Jayy Ahmedzai Cardiology Jayy Ahmedzai Cardiology Jayy Ahmedzai Cardiology Jayy Ahmedzai Cardiology Jayy Ahmedzai Cardiology Jayy Ahmedzai Cardiology Jayy Ahmedzai Cardiology Casandra Walkerm eyer Cardiology Casandra Walkerm eyer Cardiology Casandra Walkerm eyer Cardiology Casandra Walkerm eyer Cardiology Casandra Walkerm eyer Cardiology Casandra Walkerm eyer Cardiology Jayy Ahmedzai Cardiology Jayy Ahmedzai Cardiology Jayy Ahmedzai Cardiology Jayy Ahmedzai Cardiology Jayy Ahmedzai Cardiology Jayy Ahmedzai Cardiology Jayy Ahmedzai Cardiology Jayy Ahmedzai Cardiology Jayy Ahmedzai Cardiology Jayy Ahmedzai Cardiology Jayy Ahmedzai Cardiology follow up Dre Taylor Cardiology follow up Dre Taylor Cardiology follow up Dre Taylor Cardiology follow up Dre Taylor Cardiology follow up Dre Taylor Cardiology follow up Dre Taylor Cardiology Follow up Sonia bell MD Cardiology Follow up Solis C Beat ty Cardiology Follow up : B P today: 140/70 P rior BP: 110/70 (01/20/2019) Labs Reviewed: C reat: 0.90 (05/03/2008) The following medications were removed from the medication list: Vasotec 5 Mg Oral Tablet (Enalapril maleate) ..... One tab. daily Her updated medication list for this problem includes: Enalapril Tab 5mg (Enalapril maleate) ..... Take 1 tablet once daily Atenolol 50 Mg Oral Tablet (Atenolol) ..... One tab. daily Solis C Annemarie Cardiology Follow up Solis C Beat ty Cardiology Follow up Solis C Beat ty Cardiology Sonia Louis MD Cardiology Sonia Louis MD Cardiology Sonia Louis MD Cardiology Sonia Louis MD Cardiology Sonia Louis MD Cardiology Sonia Louis MD Cardiology Sonia Louis MD Cardiology Sonia Louis MD Cardiology Sonia Louis MD Cardiology Sonia Louis MD Cardiology Sonia Louis MD Cardiology Sonia Louis MD Cardiology:On Pravastatin now. T greg Louis MD Cardiology Sonia Louis MD Cardiology Sonia Louis MD Cardiology Sonia Louis MD Cardiology Sonia Louis MD Cardiology Sonia Louis MD Cardiology Sonia Louis MD Cardiology Sonia Louis MD Cardiology Sonia Louis MD Cardiology Sonia Louis MD Cardiology Sonia Louis MD : H er updated medication list for this problem includes: Vasotec 5 Mg Tabs (Enalapril maleate) ..... One tab. daily Atenolol 50 Mg Tabs (Atenolol) ..... One tab. daily Aspirin 325 Mg Tabs (Aspirin) ..... One tab daily BP today: 132/79 Prior BP: 142/86 (05/25/2012) N uclear Stress Findings: Resting ECG shows normal SR, low voltage QRS complex otherwise normal ECG. Exercise EKG had 0.8-0.9mm upsloping ST segment dperssion in the inferior leads and 0.6-0.8mm uprlsoping ST segment depression in the lateral leads not diagnostic for ischemia. Normal myocardial perfusion Tetrofosmin SPECT imaging with post stress EF of 66%. [facility] (04/23/2007) H CT: 37.6 (05/03/2008) Platelets: 249 THOUSAND/UL (05/03/2008) R BC: 4.25 MILLION/UL (05/03/2008) BUN: 14 (05/03/2008) Creat: 0.90 (05/03/2008) Glucose: 122 (05/03/2008) N a+: 138 (05/03/2008) K+: 4.6 (05/03/2008) Cl: 101 (05/03/2008) SGOT (AST): 15 (05/03/2008) SGPT (ALT): 14 (05/03/2008) Sonia Louis MD : H er updated medication list for this problem includes: Vasotec 5 Mg Tabs (Enalapril maleate) ..... One tab. daily Atenolol 50 Mg Tabs (Atenolol) ..... One tab. daily Aspirin 325 Mg Tabs (Aspirin) ..... One tab daily BP today: 132/79 P rior BP: 142/86 (05/25/2012) Labs Reviewed: C reat: 0.90 (05/03/2008) Sonia Louis MD : B P today: 132/79 Prior BP: 142/86 (05/25/2012) Sonia Louis MD : H er updated medication list for this problem includes: Atenolol 50 Mg Tabs (Atenolol) ..... One tab. daily Aspirin 325 Mg Tabs (Aspirin) ..... One tab daily BP today: 132/79 Prior BP: 142/86 (05/25/2012) H CT: 37.6 (05/03/2008) Platelets: 249 THOUSAND/UL (05/03/2008) R BC: 4.25 MILLION/UL (05/03/2008) BUN: 14 (05/03/2008) Creat: 0.90 (05/03/2008) Glucose: 122 (05/03/2008) N a+: 138 (05/03/2008) K+: 4.6 (05/03/2008) Cl: 101 (05/03/2008) Calcium: 8.9 (05/03/2008) Nuclear Stress Findings: Resting ECG shows normal SR, low voltage QRS complex otherwise normal ECG. Exercise EKG had 0.8-0.9mm upsloping ST segment dperssion in the inferior leads and 0.6-0.8mm uprlsoping ST segment depression in the lateral leads not diagnostic for ischemia. Normal myocardial perfusion Tetrofosmin SPECT imaging with post stress EF of 66%. [facility] (04/23/2007) Sonia Louis MD : H er updated medication list for this problem includes: Vasotec 5 Mg Tabs (Enalapril maleate) ..... One tab. daily Aspirin 325 Mg Tabs (Aspirin) ..... One tab daily Metformin Hcl 500 Mg Tabs (Metformin hcl) ..... 1 tablet by mouth twice daily BP today: 132/79 Prior BP: 142/86 (05/25/2012) Labs Reviewed: C reat: 0.90 (05/03/2008) Sonia Louis MD Yearly follow-up: H er updated medication list for this problem includes: Vasotec 5 Mg Tabs (Enalapril maleate) ..... One tab. daily Atenolol 50 Mg Tabs (Atenolol) ..... One tab. daily Aspirin 325 Mg Tabs (Aspirin) ..... One tab daily BP today: 142/86 Prior BP: 147/83 (05/20/2011) N uclear Stress Findings: Resting ECG shows normal SR, low voltage QRS complex otherwise normal ECG. Exercise EKG had 0.8-0.9mm upsloping ST segment dperssion in the inferior leads and 0.6-0.8mm uprlsoping ST segment depression in the lateral leads not diagnostic for ischemia. Normal myocardial perfusion Tetrofosmin SPECT imaging with post stress EF of 66%. [facility] (04/23/2007) H CT: 37.6 (05/03/2008) Platelets: 249 THOUSAND/UL (05/03/2008) R BC: 4.25 MILLION/UL (05/03/2008) BUN: 14 (05/03/2008) Creat: 0.90 (05/03/2008) Glucose: 122 (05/03/2008) N a+: 138 (05/03/2008) K+: 4.6 (05/03/2008) Cl: 101 (05/03/2008) SGOT (AST): 15 (05/03/2008) SGPT (ALT): 14 (05/03/2008) Sonia Louis MD Yearly follow-up: B P today: 142/86 Prior BP: 147/83 (05/20/2011) Sonia Louis MD Yearly follow-up: H er updated medication list for this problem includes: Atenolol 50 Mg Tabs (Atenolol) ..... One tab. daily Aspirin 325 Mg Tabs (Aspirin) ..... One tab daily Orders: E KG (CPT-61766) BP today: 142/86 Prior BP: 147/83 (05/20/2011) H CT: 37.6 (05/03/2008) Platelets: 249 THOUSAND/UL (05/03/2008) R BC: 4.25 MILLION/UL (05/03/2008) BUN: 14 (05/03/2008) Creat: 0.90 (05/03/2008) Glucose: 122 (05/03/2008) N a+: 138 (05/03/2008) K+: 4.6 (05/03/2008) Cl: 101 (05/03/2008) Calcium: 8.9 (05/03/2008) Nuclear Stress Findings: Resting ECG shows normal SR, low voltage QRS complex otherwise normal ECG. Exercise EKG had 0.8-0.9mm upsloping ST segment dperssion in the inferior leads and 0.6-0.8mm uprlsoping ST segment depression in the lateral leads not diagnostic for ischemia. Normal myocardial perfusion Tetrofosmin SPECT imaging with post stress EF of 66%. [facility] [address] (04/23/2007) Sonia Louis MD Yearly follow-up: H er updated medication list for this problem includes: Vasotec 5 Mg Tabs (Enalapril maleate) ..... One tab. daily Aspirin 325 Mg Tabs (Aspirin) ..... One tab daily Metformin Hcl 500 Mg Tabs (Metformin hcl) ..... 1 tablet by mouth twice daily BP today: 142/86 Prior BP: 147/83 (05/20/2011) Labs Reviewed: C reat: 0.90 (05/03/2008) Sonia Louis MD follow up: H er updated medication list for this problem includes: Vasotec 5 Mg Tabs (Enalapril maleate) ..... One tab. daily Atenolol 50 Mg Tabs (Atenolol) ..... One tab. daily Aspirin 325 Mg Tabs (Aspirin) ..... One tab daily BP today: 147/83 Prior BP: 159/86 (05/21/2010) N uclear Stress Findings: Resting ECG shows normal SR, low voltage QRS complex otherwise normal ECG. Exercise EKG had 0.8-0.9mm upsloping ST segment dperssion in the inferior leads and 0.6-0.8mm uprlsoping ST segment depression in the lateral leads not diagnostic for ischemia. Normal myocardial perfusion Tetrofosmin SPECT imaging with post stress EF of 66%. [facility] (04/23/2007) H CT: 37.6 (05/03/2008) Platelets: 249 THOUSAND/UL (05/03/2008) R BC: 4.25 MILLION/UL (05/03/2008) BUN: 14 (05/03/2008) Creat: 0.90 (05/03/2008) Glucose: 122 (05/03/2008) N a+: 138 (05/03/2008) K+: 4.6 (05/03/2008) Cl: 101 (05/03/2008) Echocardiogram: TDS. Normal left ventricular systolic function. Normal left ventricular size. Normal left ventricular wall thickness. Normal E/E` 4.0. Left ventricular ejection fraction is estimated at 55%. Normal aortic root. No significant valvular abnormalities. GC (05/22/2009) Sonia Louis MD follow up: H er updated medication list for this problem includes: Vasotec 5 Mg Tabs (Enalapril maleate) ..... One tab. daily Atenolol 50 Mg Tabs (Atenolol) ..... One tab. daily Aspirin 325 Mg Tabs (Aspirin) ..... One tab daily Sonia Louis MD follow up: H er updated medication list for this problem includes: Vasotec 5 Mg Tabs (Enalapril maleate) ..... One tab. daily Atenolol 50 Mg Tabs (Atenolol) ..... One tab. daily Aspirin 325 Mg Tabs (Aspirin) ..... One tab daily BP today: 147/83 Prior BP: 159/86 (05/21/2010) N uclear Stress Findings: Resting ECG shows normal SR, low voltage QRS complex otherwise normal ECG. Exercise EKG had 0.8-0.9mm upsloping ST segment dperssion in the inferior leads and 0.6-0.8mm uprlsoping ST segment depression in the lateral leads not diagnostic for ischemia. Normal myocardial perfusion Tetrofosmin SPECT imaging with post stress EF of 66%. [facility] (04/23/2007) E chocardiogram: TDS. Normal left ventricular systolic function. Normal left ventricular size. Normal left ventricular wall thickness. Normal E/E` 4.0. Left ventricular ejection fraction is estimated at 55%. Normal aortic root. No significant valvular abnormalities. GC (05/22/2009) HCT: 37.6 (05/03/2008) Platelets: 249 THOUSAND/UL (05/03/2008) R BC: 4.25 MILLION/UL (05/03/2008) BUN: 14 (05/03/2008) Creat: 0.90 (05/03/2008) Glucose: 122 (05/03/2008) N a+: 138 (05/03/2008) K+: 4.6 (05/03/2008) Cl: 101 (05/03/2008) SGOT (AST): 15 (05/03/2008) SGPT (ALT): 14 (05/03/2008) Sonia Louis MD follow up: H er updated medication list for this problem includes: Atenolol 50 Mg Tabs (Atenolol) ..... One tab. daily Aspirin 325 Mg Tabs (Aspirin) ..... One tab daily Orders: EKG ([facility]-[id number]) BP today: 147/83 Prior BP: 159/86 (05/21/2010) H CT: 37.6 (05/03/2008) Platelets: 249 THOUSAND/UL (05/03/2008) R BC: 4.25 MILLION/UL (05/03/2008) BUN: 14 (05/03/2008) Creat: 0.90 (05/03/2008) Glucose: 122 (05/03/2008) N a+: 138 (05/03/2008) K+: 4.6 (05/03/2008) Cl: 101 (05/03/2008) Calcium: 8.9 (05/03/2008) Nuclear Stress Findings: Resting ECG shows normal SR, low voltage QRS complex otherwise normal ECG. Exercise EKG had 0.8-0.9mm upsloping ST segment dperssion in the inferior leads and 0.6-0.8mm uprlsoping ST segment depression in the lateral leads not diagnostic for ischemia. Normal myocardial perfusion Tetrofosmin SPECT imaging with post stress EF of 66%. [facility] (04/23/2007) E chocardiogram: TDS. Normal left ventricular systolic function. Normal left ventricular size. Normal left ventricular wall thickness. Normal E/E` 4.0. Left ventricular ejection fraction is estimated at 55%. Normal aortic root. No significant valvular abnormalities. GC (05/22/2009) Sonia Louis MD follow u: H er updated medication list for this problem includes: Vasotec 5 Mg Tabs (Enalapril maleate) ..... One tab. daily Atenolol 50 Mg Tabs (Atenolol) ..... One tab. daily Aspirin 325 Mg Tabs (Aspirin) ..... One tab daily BP today: 159/86 Prior BP: 142/73 (05/22/2009) N uclear Stress Findings: Resting ECG shows normal SR, low voltage QRS complex otherwise normal ECG. Exercise EKG had 0.8-0.9mm upsloping ST segment dperssion in the inferior leads and 0.6-0.8mm uprlsoping ST segment depression in the lateral leads not diagnostic for ischemia. Normal myocardial perfusion Tetrofosmin SPECT imaging with post stress EF of 66%. [facility] (04/23/2007) E chocardiogram: TDS. Normal left ventricular systolic function. Normal left ventricular size. Normal left ventricular wall thickness. Normal E/E` 4.0. Left ventricular ejection fraction is estimated at 55%. Normal aortic root. No significant valvular abnormalities. GC (05/22/2009) HCT: 37.6 (05/03/2008) Platelets: 249 THOUSAND/UL (05/03/2008) R BC: 4.25 MILLION/UL (05/03/2008) BUN: 14 (05/03/2008) Creat: 0.90 (05/03/2008) Glucose: 122 (05/03/2008) N a+: 138 (05/03/2008) K+: 4.6 (05/03/2008) Cl: 101 (05/03/2008) SGOT (AST): 15 (05/03/2008) SGPT (ALT): 14 (05/03/2008) Sonia Louis MD follow u: H er updated medication list for this problem includes: Vasotec 5 Mg Tabs (Enalapril maleate) ..... One tab. daily Atenolol 50 Mg Tabs (Atenolol) ..... One tab. daily Aspirin 325 Mg Tabs (Aspirin) ..... One tab daily BP today: 159/86 P rior BP: 142/73 (05/22/2009) Labs Reviewed: C reat: 0.90 (05/03/2008) Sonia Louis MD follow u: B P today: 159/86 Prior BP: 142/73 (05/22/2009) Sonia Louis MD follow u: H er updated medication list for this problem includes: Atenolol 50 Mg Tabs (Atenolol) ..... One tab. daily Aspirin 325 Mg Tabs (Aspirin) ..... One tab daily BP today: 159/86 Prior BP: 142/73 (05/22/2009) H CT: 37.6 (05/03/2008) Platelets: 249 THOUSAND/UL (05/03/2008) R BC: 4.25 MILLION/UL (05/03/2008) BUN: 14 (05/03/2008) Creat: 0.90 (05/03/2008) Glucose: 122 (05/03/2008) N a+: 138 (05/03/2008) K+: 4.6 (05/03/2008) Cl: 101 (05/03/2008) Calcium: 8.9 (05/03/2008) Nuclear Stress Findings: Resting ECG shows normal SR, low voltage QRS complex otherwise normal ECG. Exercise EKG had 0.8-0.9mm upsloping ST segment dperssion in the inferior leads and 0.6-0.8mm uprlsoping ST segment depression in the lateral leads not diagnostic for ischemia. Normal myocardial perfusion Tetrofosmin SPECT imaging with post stress EF of 66%. [facility] (04/23/2007) E chocardiogram: TDS. Normal left ventricular systolic function. Normal left ventricular size. Normal left ventricular wall thickness. Normal E/E` 4.0. Left ventricular ejection fraction is estimated at 55%. Normal aortic root. No significant valvular abnormalities. GC (05/22/2009) Sonia Louis MD Routine Visit with ozzie siu: H er updated medication list for this problem includes: Vasotec 5 Mg Tabs (Enalapril maleate) ..... One tab. daily Atenolol 50 Mg Tabs (Atenolol) ..... One tab. daily Aspirin 325 Mg Tabs (Aspirin) ..... One tab daily BP today: 142/73 Prior BP: 136/70 (05/03/2008) N uclear Stress Findings: Resting ECG shows normal SR, low voltage QRS complex otherwise normal ECG. Exercise EKG had 0.8-0.9mm upsloping ST segment dperssion in the inferior leads and 0.6-0.8mm uprlsoping ST segment depression in the lateral leads not diagnostic for ischemia. Normal myocardial perfusion Tetrofosmin SPECT imaging with post stress EF of 66%. [facility] (04/23/2007) E chocardiogram: TDS. Suboptimal exam. LV chamber size is normal. Mild concentric LVH. Normal left ventricular function. LV EF is estimated at 55%. Minimal MR & TR. [facility] (05/03/2008) H CT: 37.6 (05/03/2008) Platelets: 249 THOUSAND/UL (05/03/2008) R BC: 4.25 MILLION/UL (05/03/2008) BUN: 14 (05/03/2008) Creat: 0.90 (05/03/2008) Glucose: 122 (05/03/2008) N a+: 138 (05/03/2008) K+: 4.6 (05/03/2008) Cl: 101 (05/03/2008) SGOT (AST): 15 (05/03/2008) SGPT (ALT): 14 (05/03/2008) Sonia Louis MD Routine Visit with e cho: H er updated medication list for this problem includes: Vasotec 5 Mg Tabs (Enalapril maleate) ..... One tab. daily Atenolol 50 Mg Tabs (Atenolol) ..... One tab. daily Aspirin 325 Mg Tabs (Aspirin) ..... One tab daily BP today: 142/73 P rior BP: 136/70 (05/03/2008) Labs Reviewed: C reat: 0.90 (05/03/2008) Sonia Louis MD Routine Visit with e cho: H er updated medication list for this problem includes: Atenolol 50 Mg Tabs (Atenolol) ..... One tab. daily Aspirin 325 Mg Tabs (Aspirin) ..... One tab daily BP today: 142/73 Prior BP: 136/70 (05/03/2008) H CT: 37.6 (05/03/2008) Platelets: 249 THOUSAND/UL (05/03/2008) R BC: 4.25 MILLION/UL (05/03/2008) BUN: 14 (05/03/2008) Creat: 0.90 (05/03/2008) Glucose: 122 (05/03/2008) N a+: 138 (05/03/2008) K+: 4.6 (05/03/2008) Cl: 101 (05/03/2008) Calcium: 8.9 (05/03/2008) Nuclear Stress Findings: Resting ECG shows normal SR, low voltage QRS complex otherwise normal ECG. Exercise EKG had 0.8-0.9mm upsloping ST segment dperssion in the inferior leads and 0.6-0.8mm uprlsoping ST segment depression in the lateral leads not diagnostic for ischemia. Normal myocardial perfusion Tetrofosmin SPECT imaging with post stress EF of 66%. [facility] (04/23/2007) E chocardiogram: TDS. Suboptimal exam. LV chamber size is normal. Mild concentric LVH. Normal left ventricular function. LV EF is estimated at 55%. Minimal MR & TR. [facility] (05/03/2008) Sonia Louis MD yearly follow-up wit h Echo: H er updated medication list for this problem includes: Vasotec 5 Mg Tabs (Enalapril maleate) ..... One tab. daily Atenolol 50 Mg Tabs (Atenolol) ..... One tab. daily Aspirin 325 Mg Tabs (Aspirin) ..... One tab daily BP today: 136/70 Prior BP: / () N uclear Stress Findings: Resting ECG shows normal SR, low voltage QRS complex otherwise normal ECG. Exercise EKG had 0.8-0.9mm upsloping ST segment dperssion in the inferior leads and 0.6-0.8mm uprlsoping ST segment depression in the lateral leads not diagnostic for ischemia. Normal myocardial perfusion Tetrofosmin SPECT imaging with post stress EF of 66%. [facility] (04/23/2007) E chocardiogram: TDS. LV chamber size is normal. Mild concentric LVH. LVEF 55%. [facility] (04/23/2007) Sonia Louis MD yearly follow-up wit h Echo: H er updated medication list for this problem includes: Vasotec 5 Mg Tabs (Enalapril maleate) ..... One tab. daily Atenolol 50 Mg Tabs (Atenolol) ..... One tab. daily Aspirin 325 Mg Tabs (Aspirin) ..... One tab daily BP today: 136/70 Prior BP: / () N uclear Stress Findings: Resting ECG shows normal SR, low voltage QRS complex otherwise normal ECG. Exercise EKG had 0.8-0.9mm upsloping ST segment dperssion in the inferior leads and 0.6-0.8mm uprlsoping ST segment depression in the lateral leads not diagnostic for ischemia. Normal myocardial perfusion Tetrofosmin SPECT imaging with post stress EF of 66%. [facility] (04/23/2007) E chocardiogram: TDS. LV chamber size is normal. Mild concentric LVH. LVEF 55%. [facility] (04/23/2007) Orders: L ipoprotein Profile by NMR (*) C BC (INCLUDES DIFF/PLT) (6399) C OMPREHENSIVE METABOLIC PANEL W/EGFR (98324) Sonia Louis MD yearly follow-up wit h Echo: H er updated medication list for this problem includes: Vasotec 5 Mg Tabs (Enalapril maleate) ..... One tab. daily Atenolol 50 Mg Tabs (Atenolol) ..... One tab. daily Aspirin 325 Mg Tabs (Aspirin) ..... One tab daily BP today: 136/70 Orders: L ipoprotein Profile by NMR (*) C BC (INCLUDES DIFF/PLT) (6399) C OMPREHENSIVE METABOLIC PANEL W/EGFR (10698) Sonia Louis MD yearly follow-up wit h Echo: B P today: 136/70 Prior BP: / () Orders: L ipoprotein Profile by NMR (*) C BC (INCLUDES DIFF/PLT) (6399) C OMPREHENSIVE METABOLIC PANEL W/EGFR (18108) L ipoprotein Profile by NMR (*) Sonia Louis MD yearly follow-up wit h Echo: H er updated medication list for this problem includes: Atenolol 50 Mg Tabs (Atenolol) ..... One tab. daily Aspirin 325 Mg Tabs (Aspirin) ..... One tab daily B P today: 136/70 Prior BP: / () N uclear Stress Findings: Resting ECG shows normal SR, low voltage QRS complex otherwise normal ECG. Exercise EKG had 0.8-0.9mm upsloping ST segment dperssion in the inferior leads and 0.6-0.8mm uprlsoping ST segment depression in the lateral leads not diagnostic for ischemia. Normal myocardial perfusion Tetrofosmin SPECT imaging with post stress EF of 66%. [facility] (04/23/2007) E chocardiogram: TDS. LV chamber size is normal. Mild concentric LVH. LVEF 55%. [facility] (04/23/2007) Orders: L ipoprotein Profile by NMR (*) C BC (INCLUDES DIFF/PLT) (6399) C OMPREHENSIVE METABOLIC PANEL W/EGFR (17114) Sonia Louis MD Date Name Complete Echo Complete Echo Lipoprotein Profile by NMR COMPREHENSIVE METABO LIC PANEL W/EGFR CBC (INCLUDES DIFF/P LT) HISTORY OF PROCEDURES Procedure Date Procedure Name Provider Procedure Notes S tatus Complex e/m visit add on Sonia Louis MD completed EKG Sonia Louis MD completed EKG Sonia Louis MD completed EKG Sonia Louis MD completed EKG Sonia Louis MD completed SNOMED-CT: [id number] Physical Exam, Performed: Pulse Exam of Foot Sonia Louis MD completed SNOMED-CT: 649821129 [id number] Current Medications Documented Sonia Louis MD completed SNOMED-CT: 96959821 Physical Exam, Performed: Pulse Exam of Foot Sonia Louis MD completed EKG Sonia Louis MD completed SNOMED-CT: 030093950 [id number] Current Medications Documented Sonia Louis MD completed SNOMED-CT: 79584936 Physical Exam, Performed: Pulse Exam of Foot Sonia Louis MD completed EKG Sonia Louis MD completed SNOMED-CT: [id number] Current Medications Documented Sonia Louis MD completed EKG Sonia Louis MD completed EKG Sonia Louis MD completed EKG Sonia Louis MD completed EKG Sonia Louis MD completed EKG Sonia Louis MD completed
--- OUTSIDE RECORDS SUMMARY | 2024-06-15 10:38 | XMS_ITS | Clinical Summary ---
Author Organization [facility] Address [address] [place] [address] Care Team Providers Care Bull Bucker Name Role Phone Carmella Neville DO Primary Care Provider [phone] Source Comments [facility],non-owned Affiliates and Associated Physician Practices is amultiple site organization consisting of ambulatory clinics and hospital sitesin [place], [place], [place] and [place]. This disclosure is being madepursuant to the Care Everywhere program and may not contain all information available regarding this patient. Last updated 17.[facility] Allergies No known active allergies Medications * Be aware that medications may not be up to date on this document. Alwaysverify current medications with the patient. Janumet 50-500 MG tablet 1 (one) tablet 2 times daily 5 Active Xarelto 20 MG tablet Xarelto 20 mg tablet 5 Active Progesterone 100 MG capsule TAKE 1 CAPSULE BY MOUTH EVERY DAY AT BEDTIME 5 Active pravastatin (Pravachol) 20 MG tablet Take 1 (one) tablet by mouth once daily 5 Active fluticasone propionate (Flonase) 50 MCG/ACT nasal spray [place] 2 (two) sprays into each nostril once daily 4 Active fluconazole (Diflucan) 150 MG tablet Take 1 (one) tablet by mouth once 4 Active famotidine (Pepcid) 40 MG tablet Take 1 (one) tablet by mouth once daily Active enalapril (Vasotec) 5 MG tablet Take 1 (one) tablet by mouth once daily 5 Active Farxiga 10 MG tablet Take 1 (one) tablet by mouth once daily Active clotrimazole-be tamethasone (Lotrisone) 1-0.05 % cream APPLY TWICE DAILY EXTERNALLY 4 Active vitamin D3 (Cholecalcifero l) 25 MCG (1000 UNITS) tablet Vitamin D3 25 mcg (1,000 unit) tablet Active cetirizine (ZyrTEC) 10 MG tablet Take 1 (one) tablet by mouth once daily 5 Active atenolol (Tenormin) 50 MG tablet Take 1 (one) tablet by mouth once daily Active Lumigan 0.01 % ophth solution 1 (one) drop 5 Active Encounters Date Type Department Care Team Description 06/08/2024 11:45 AM CDT Ancillary Procedure [facility] - Radiology [address] [place] [phone] Adrian Kemp MD Pain in both knees, unspecified chronicity 06/08/2024 11:10 AM CDT Office Visit [facility] [address] [place] [phone] Adrian Kemp MD Pain in both knees, unspecified chronicity (Primary Dx) from Last 3 Months Social History Tobacco Use Types Packs/Day Years Used Date Smoking Tobacco: Never Assessed Comments Unknown Sex and Gender Information Value Date Recorded Sex Assigned at Not on file 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 Gender Identity Not on file Sexual Orientation Not on file Plan of Treatment Upcoming Encounters Date Type Department Care Team (Late st Contact Info) Description 08/13/2024 9:50 AM CDT Office Visit [facility] [address] [place] [phone] [place] Kemp MD [id number] [place] [id number] Health Maintenance Due Date Last Done Comments BONE DENSITY TESTING 1950 COLOGUARD (AGES 45-75) - COL ON CA SCREENING 1950 COLON MONITORING 1950 COLONOSCOPY - COLON CA SCREENING 1950 CT COLONOGRAPHY - COLON CA SCREENING 1950 Colorectal Cancer Screening 1950 FIT - COLON CA SCREENING 1950 FLEX SIG - COLON CA SCREENING 1950 MAMMOGRAM 1950 HEPATITIS C SCREENING 08/07/1968 DTAP/TDAP/TD VACCINES (1 - Tdap) 1969 PNEUMOCOCCAL VACCINE 50+ (1 of 1 - PCV) 2000 ZOSTER VACCINE (1 of 2) 2000 Respiratory Syncytial Virus (RSV) Vaccine Pt: or over 60 yrs (1 - Risk 60-74 years 1-dose series) 2010 COVID-19 VACCINE ( - 2023-2 5 season) 2023 DEPRESSION SCREENING 02/18/2024 MEDICARE AWV CALENDAR YEAR 2024 INFLUENZA VACCINE (Season Ended) 2024 HEPATITIS B VACCINE Aged Out No longe r eligible based on patient's age to complete this topic HIB VACCINE Aged Out No longer eligi ble based on patient's age to complete this topic HPV VACCINE Aged Out No longer eligi ble based on patient's age to complete this topic MENINGOCOCCAL (Group B) VACC INE SHARED DECISION-MAKING Aged Out No longer eligibl e based on patient's age to complete this topic MENINGOCOCCAL GROUPS A/C/Y/W VACCINE Aged Out No longer eligible b ased on patient's age to complete this topic Procedures Procedure Name Priority Date/Time Associated Diagnosis Comments XR KNEE BILAT 3VW Routine 06/08/2024 11: 44 AM CDT Pain in both knees, unspecified chronicity from Last 3 Months Results * XR Knee Bilat 3Vw (06/08/2024 11:44 AM CDT) Narrative [facility] [address] - 06/08/2024 11:44 AM CDT Please see progress note in Epic for results. us Adrian Kemp MD DIAGNOSTIC IMAGING ORDERABLES Final Result [facility] [address] from Last 3 Months [facility] [employer] MEDIC[facility] ADV SELF PAY NO INSURANCE Member Subscriber Plan / Payer (Ef fective for All Dates) Name:Agnieszka Valdez Member ID:Not on file Relation to Subscriber:Not on file Name:AGNIESZKA VALDEZ Subscriber ID:Not on file (Home) Address: [address] [place] [address] Payer ID:Not on file Group ID:Not on file Type:Self Pay Address: [place], [place] [employer] MEDICARE ADV SELF PAY NO INSURANCE Member Subscriber Plan / Payer (Ef fective for All Dates) Name:Agnieszka Valdez Member ID:Not on file Relation to Subscriber:Not on file Name:AGNIESZKA VALDEZ Subscriber ID:Not on file Address: [address] [place] [address] Payer ID:Not on file Group ID:Not on file Type:Self Pay Address: [place], [place] SELF PAY NO INSURANCE Member Subscriber Plan / Payer (Ef fective for All Dates) Name:Agnieszka Valdez Member ID:Not on file Relation to Subscriber:Not on file Name:AGNIESZKA VALDEZ Subscriber ID:Not on file Address: [address] [place] [address] Payer ID:Not on file Group ID:Not on file Type:Self Pay Address: [place], [place] [employer] MEDICARE ADV SELF PAY NO INSURANCE Member Subscriber Plan / Payer (Ef fective for All Dates) Name:Shaguftarocael Agnieszka Dunham Member ID:Not on file Relation to Subscriber:Not on file Name:SHAGUFTACIPRIANO ECHAVARRIAARA Subscriber ID:Not on file Address: [address] [place] [address] Payer ID:Not on file Group ID:Not on file Type:Self Pay Address: [place], [place] Care Teams Bull Bucker Relationship Specialty Start Date End Date Carmella Neville DO [address] [place] [address] PCP - General 04/19/22
--- OUTSIDE RECORDS SUMMARY | 2024-06-15 10:38 | XMS_ITS | Clinical Summary ---
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 Gender Identity Not on file Sexual Orientation Not on file Plan of Treatment Health Maintenance Due Date Last Done Comments DTAP/TDAP/TD VACCINES (1 - Tdap) 1969 BREAST CANCER SCREENING 1990 COLORECTAL SCREENING 08/13/1995 Colorectal Cancer Screening 08/13/1995 FIT-DNA Q 3 years 08/13/1995 FIT/FOBT Q 1 year 08/13/1995 Flex Sig/CT Colonography Q 5 years 08/13/1995 PNEUMOCOCCAL VACCINE 50+ YEARS (1 of 1 - PCV) 08/13/19 01 ZOSTER VACCINE (1 of 2) 2000 OSTEOPOROSIS SCREENING 08/13/2015 INFLUENZA VACCINE (#1) 2023 RSV VACCINE (60+ or ) (1 - 1-dose 75+ series) 2025 Care Teams Fabric And Textile Factory Worker Relationship Specialty Start Date End Date Anthony Turcios DO [address] [place] [phone] PCP - General Internal Medicine 03/30/20
== END 2024-06-15 09:41 | disposition home or self-care (01) ==
PROVIDERS: PCP Family Medicine; Visit Provider Nurse Practitioner
DX: Z12.31 Encounter for screening mammogram for malignant neoplasm of breast (principal)
CPT/HCPCS: 77063; 77067